=== PATIENT | male | born 1945 | race Caucasian/White ===

== ENCOUNTER 2019-08-07 11:02 | Outpatient (CLI) | payer MEDICARE, OTHER, SELFPAY ==
--- NOTE | 2019-08-07 11:22 | XR_ITS ---
WS: [id number] Left hip, AP and frog leg views, 08/07/2019 Clinical Data: LEFT HIP PAIN Comparison: None. Findings: A left hip arthroplasty is in good position. The acetabular portion is attached to the pelvis with an orthopedic screw. The femoral portion of the prosthesis is within the proximal femoral medullary can al. No loosening is seen. The soft tissues are not remarkable. XR/XR hip LT 2-3V wo/w pel* [id number] Impression: Left hip arthroplasty.
== END 2019-08-07 11:03 | disposition home or self-care (01) ==
LOC: RAD 11:19
PROVIDERS: Family Provider Emergency Medicine Emergency Medical Services; PCP Emergency Medicine Emergency Medical Services; Visit Provider Orthopaedic Surgery
DX: M25.552 Pain in left hip (principal); Z96.642 Presence of left artificial hip joint
CPT/HCPCS: 73502

== ENCOUNTER 2020-07-09 07:39 | Outpatient (CLI) | payer MEDICARE, OTHER, SELFPAY ==
--- NOTE | 2020-07-09 08:00 | USCV_ITS ---
Sridhar Mercado Age: 74 Gender: M : 1945 Exam Date: 07/09/2020 08:03 Ordering Phys: Brenda Ortiz MD ([email or web address]) Technologist: Andreea Castro Exam Location: [facility] [place] Indication: STENOSIS Risk Factors: Previous Vascular Surgery: Right Brachial BP: / Left Brachial BP: / Right Left Velocity (cm/s) Spectral Plaque Velocity (cm/s) Spectral Plaque Syst/Diast Broadening Syst/Diast Broadening 66.20/ 22.10 Prox CCA 72.70 / 17.50 89.30/ 20.90 Mid CCA 64.50 / 15.00 93.70/ 18.70 Distal CCA 66.40 / 11.30 124.30/21.80 Prox ICA 82.50 / 20.60 32.90/ 8.50 Mid ICA 76.60 / 19.20 46.00/ 13.80 Distal ICA 69.30 / 23.60 232.40 ECA 122.30 1.39 ICA/CCA 1.28 Antegrade Vertebral Antegrade 34.20/ 7.20 cm/s 40.50/ 9.60 cm/s Tri Subclavian Tri 75.20 138.6 0 FINDINGS Moderate diffuse heterogeneous plaques at the bifurcation and distal common carotid artery on the right side. Mild to moderate heterogeneous plaques of the left bifurcation and internal carotid artery. Antegrade flow in the vertebral arteries bilaterally. Elevated Doppler velocity in the right external carotid artery CONCLUSIONS Moderate diffuse heterogeneous plaques at the bifurcation and distal common carotid artery on the right sidewith velocity elevation consistent with 16-49% stenosis. Moderate heterogeneous plaques at the left bifurcation and internal carotid arterywith velocity elevation consistent with 16-49% stenosis. Elevated velocity in the external carotid artery on the right side, suggestive of hemodynamically significant stenosis. Compared to the study from 07/13/2019, there may not be a significant change Dr Brenda Ortiz MD [facility] (Electronically Signed) Final Date: 10 July 2020 14:47 S
== END 2020-07-09 07:40 | disposition home or self-care (01) ==
PROVIDERS: PCP Emergency Medicine Emergency Medical Services; Visit Provider Internal Medicine Cardiovascular Disease
DX: I65.23 Occlusion and stenosis of bilateral carotid arteries (principal)
CPT/HCPCS: 93880

== ENCOUNTER → 2022-02-16 13:28 | Outpatient (BNVA) | payer OTHER, SELFPAY | PROVIDERS: PCP Emergency Medicine Emergency Medical Services; Visit Provider Internal Medicine Cardiovascular Disease | DX: I25.10 Atherosclerotic heart disease of native coronary artery without angina pectoris (principal); I49.9 Cardiac arrhythmia, unspecified; I65.23 Occlusion and stenosis of bilateral carotid arteries; I10 Essential (primary) hypertension; E78.2 Mixed hyperlipidemia | CPT/HCPCS: 99214 ==

== ENCOUNTER 2022-04-05 12:56 | Outpatient (CLI) | payer OTHER, SELFPAY ==
--- NOTE | 2022-04-05 13:30 | USCV_ITS ---
Sridhar Mercado Age: 76 Gender: M : 1945 Exam Date: 04/05/2022 13:37 Ordering Phys: Brenda Ortiz MD ([email or web address]) Technologist: Lalitha Sanchez [place] [facility] [place]: carotid stenosis Risk Factors: Unknown Previous Vascular Surgery: None Right Brachial BP: / Left Brachial BP: / Right Left Velocity (cm/s) Spectral Plaque Velocity (cm/s) Spectral Plaque Syst/Diast Broadening Syst/Diast Broadening 42.70/ 7.20 Prox CCA 87.20 / 14.50 60.50/ 13.80 [place] Mid CCA 91.40 / 17.90 51.90/ 10.50 [place] Distal CCA 85.40 / 19.70 [place] 107.15/20.40 [place] Prox ICA 140.30/ 10.60 [place] 77.80/ 12.00 Mid ICA 66.40 / 14.10 55.50/ 13.70 Distal ICA 63.90 / 21.60 155.40 [place] ECA 203.10 [place] 2.04 ICA/CCA 1.53 Antegrade Vertebral Antegrade 31.60/ 7.20 cm/s 45.90/ 12.80 cm/s Tri Subclavian Tri 88.90 85.40 FINDINGS Comparison:. 07/09/20 Diffuse bilateral scattered calcified plaque and intimal thickening throughout the common carotid arteries and extending through the bifurcation. Mild diffuse elevation of carotid velocity. Antegrade vertebral arteries. CONCLUSIONS Bilateral ICA stenosis less than 50%, right greater than left. No interval change in stenosis since prior exam. Extensive diffuse irregular carotid atherosclerosis. Dr. Lianet Hogan DO (Electronically Signed) Final Date: 05 April 2022 14:52 S
== END 2022-04-05 12:57 | disposition home or self-care (01) ==
LOC: RAD 12:58
PROVIDERS: PCP Emergency Medicine Emergency Medical Services; Visit Provider Internal Medicine Cardiovascular Disease
DX: I65.23 Occlusion and stenosis of bilateral carotid arteries (principal); I77.9 Disorder of arteries and arterioles, unspecified
CPT/HCPCS: 93880

== ENCOUNTER → 2023-02-14 13:48 | Outpatient (BNVA) | payer OTHER, SELFPAY | PROVIDERS: PCP Emergency Medicine Emergency Medical Services; Visit Provider Internal Medicine Cardiovascular Disease | DX: I65.23 Occlusion and stenosis of bilateral carotid arteries (principal); I25.10 Atherosclerotic heart disease of native coronary artery without angina pectoris; I10 Essential (primary) hypertension; E78.2 Mixed hyperlipidemia; I49.8 Other specified cardiac arrhythmias | CPT/HCPCS: 99214 ==

== ENCOUNTER 2023-06-13 10:50 | Outpatient (CLI) | payer OTHER, SELFPAY ==
--- NOTE | 2023-06-13 11:15 | USCV_ITS ---
Sridhar Mercado Age: 77 Gender: M : 1945 Exam Date: 06/13/2023 11:00 Ordering Phys: Brenda Ortiz MD ([email or web address]) Technologist: Exam Location: [facility] [place] Indication: cca disease Risk Factors: Previous Vascular Surgery: Right Brachial BP: / Left Brachial BP: / Right Left Velocity (cm/s) Spectral Plaque Velocity (cm/s) Spectral Plaque Syst/Diast Broadening Syst/Diast Broadening 77.70/ 17.10 [place] Prox CCA 82.85 / 14.95 153.80/22.30 [place] Mid CCA 60.65 / 14.55 [place] 122.30/28.90 [place] Distal CCA 78.60 / 14.50 [place] 107.00/19.25 [place] Prox ICA 87.10 / 12.10 [place] 89.75/ 13.25 Mid ICA 87.10 / 14.30 55.80/ 13.97 Distal ICA 39.50 / 8.50 132.80 ECA 189.00 0.53 ICA/CCA 1.15 Antegrade Vertebral Antegrade 49.95/ 11.55 cm/s 50.90/ 13.20 cm/s Tri Subclavian Tri 81.20 83.10 FINDINGS Moderate diffuse common carotid arteryd heterogenous diffuse plaques in the right common carotid artery Mild to moderate diffuse plaques in the left common carotid artery. Mild to moderate plaques at the bifurcations bilaterally Elevated velocity in the left ECA Antegrade flow in the vertebral arteries bilateral Normal Doppler flow velocities in the common good subclavian arteries bilaterally CONCLUSIONS Mild to moderate plaques at the bifurcations bilaterally, suggesting less than 50% stenosis Elevated velocity in the mid right common carotid artery on the right side, may suggest hemodynamically significant stenosis Elevated velocity in the left ECA, may suggest hemodynamically significant stenosis Dr Brenda Ortiz MD [facility] (Electronically Signed) Final Date: 13 June 2023 17:56 S
== END 2023-06-13 10:51 | disposition home or self-care (01) ==
LOC: RAD 10:50
PROVIDERS: PCP Emergency Medicine Emergency Medical Services; Visit Provider Internal Medicine Cardiovascular Disease
DX: I65.23 Occlusion and stenosis of bilateral carotid arteries (principal)
CPT/HCPCS: 93880; 99214

== ENCOUNTER → 2023-10-27 10:55 | Outpatient (BNVA) | payer OTHER, SELFPAY | PROVIDERS: PCP Emergency Medicine Emergency Medical Services; Visit Provider Internal Medicine Cardiovascular Disease | DX: R07.9 Chest pain, unspecified (principal); R06.02 Shortness of breath; I25.10 Atherosclerotic heart disease of native coronary artery without angina pectoris; I49.9 Cardiac arrhythmia, unspecified; I10 Essential (primary) hypertension; E78.2 Mixed hyperlipidemia; I65.23 Occlusion and stenosis of bilateral carotid arteries | CPT/HCPCS: 93005; 99214 ==

== ENCOUNTER → 2023-11-01 09:39 | Outpatient (BNVA) | payer OTHER, SELFPAY | PROVIDERS: PCP Emergency Medicine Emergency Medical Services; Visit Provider Internal Medicine Cardiovascular Disease | DX: I48.91 Unspecified atrial fibrillation (principal); I49.9 Cardiac arrhythmia, unspecified; I47.29 Other ventricular tachycardia; I49.3 Ventricular premature depolarization | CPT/HCPCS: 93246 ==

== ENCOUNTER → 2023-12-14 10:32 | Outpatient (BNVA) | payer OTHER, SELFPAY | PROVIDERS: PCP Emergency Medicine Emergency Medical Services; Visit Provider Nurse Practitioner Family | DX: I48.19 Other persistent atrial fibrillation (principal) | CPT/HCPCS: 99214 ==

== ENCOUNTER 2023-12-16 12:23 | Outpatient (CLI) | payer OTHER, SELFPAY ==
[2023-12-16 13:16] LABS: Basophils # 0.1 10^3/uL (0.0-0.1); Basophils % 0.8 %; Eosinophils % 0.2 %; Hematocrit 40.8 % (37-53); Lymphocytes # 1.9 10^3/uL (0.8-4.8); Lymphocytes % 22.5 %; Mean Corpuscular HGB Conc 34.6 g/dL (30-55); Mean Corpuscular Hemoglobin 33.9 pg (27-33); Mean Corpuscular Volume 98.1 fl (82-101); Mean Platelet Volume 9.2 fL (7.4-10.4); Monocytes # 0.7 10^3/uL (0.2-0.9); Neutrophils # 5.75 10^3/uL (1.8-7.7); Neutrophils % 67.8 %; Nucleated Red Blood Cells % 0 %; Platelet Count 173 10^3/cmm (157-399); Red Blood Count 4.16 10^6/uL (3.85-5.65); Red Cell Distribution Width 13.2 % (12.1-15.1); White Blood Count 8.49 10^3/uL (3.29-11.43)
== END 2023-12-16 12:24 | disposition home or self-care (01) ==
LOC: LAB 12:26
PROVIDERS: Nurse Practitioner Family; PCP Emergency Medicine Emergency Medical Services; Visit Provider Internal Medicine Cardiovascular Disease
DX: I48.91 Unspecified atrial fibrillation (principal)
CPT/HCPCS: 85025

== ENCOUNTER 2023-12-16 12:35 | Outpatient (CLI) | payer OTHER, SELFPAY ==
--- NOTE | 2023-12-16 14:00 | USCV_ITS ---
MercadoSridhar carlos Age: 78 Gender: M : 1945 Exam Date: 12/16/2023 14:15 Ordering Phys: Brenda Ortiz MD ([email or web address]) Technologist: DEREK [place] [facility] [place]: a fib BP: 138 / 70 HR: 72 Rhythm: Sinus Technical Quality: Adequate MEASUREMENTS (Male / Female) Normal Values 2D ECHO LV Diastolic Diameter PLAX 4.1 cm 4.2 - 5.9 / 3.9 - 5.3 cm IVS Diastolic Thickness 1.2 cm 0.6 - 1.0 / 0.6 - 0.9 cm IVS Systolic Thickness 1.8 cm LVPW Diastolic Thickness 1.7 cm 0.6 - 1.0 / 0.6 - 0.9 cm LVPW Systolic Thickness 1.3 cm LVOT Diameter 2.1 cm LV Ejection Fraction 2D Teich 60.8 % LV Ejection Fraction MOD 2C 56.6 % LV Ejection Fraction 2C AL 55.5 % LA Diameter 4.4 cm RA Systolic Volume 4C AL 76.9 ml RA Systolic Volume 4C MOD 76.2 ml LA Sys Volume AL 80.0 cm cubed LA Sys Volume Index AL 34.4 cm cubed/m squared Aorta at Sinotubular Diameter 2.7 cm IVC Diameter 2.7 cm M-MODE LA Ao Ratio MM 1.3 MV E Point Septal Separation 0.7 cm AV Cusp Separation MM 1.7 cm DOPPLER AV Peak Velocity 87.0 cm/s LVOT Peak Velocity 62.0 cm/s AV Area Cont Eq vti 3.1 cm squared AV Area Cont Eq pk 2.5 cm squared MV Peak Velocity 97.0 cm/s MV Area PHT 8.5 cm squared Mitral E to A Ratio 1.5 TV Peak Velocity 257.5 cm/s TR Peak Velocity 273.0 cm/s TR Peak Gradient 29.8 mmHg TR Mean Velocity 183.0 cm/s TR Mean Gradient 15.9 mmHg TR Velocity Time Integral 70.3 cm PV Peak Velocity 66.7 cm/s RV Ejection Time 0.3 s FINDINGS Left Ventricle Normal left ventricular size and systolic function, EF 55%. Mild concentric left ventricular hypertrophy. No regional wall motion abnormalities. Right Ventricle The right ventricle is normal in size and function. Right Atrium Mildly increased right atrial size. Left Atrium Mildly increased left atrial size. Mitral Valve Mild mitral valve regurgitation. Aortic Valve No gross abnormalities noted Tricuspid Valve No gross abnormalities noted Pulmonic Valve No gross abnormalities noted Pericardium Normal pericardium without effusion. Aorta Normal ascending aorta dimension. IVC The inferior vena cava appears normal. CONCLUSIONS Normal left ventricular size and systolic function, EF 55%. Mild concentric left ventricular hypertrophy. No regional wall motion abnormalities. Mild biatrial enlargement. Mild mitral valve regurgitation. There is no pericardial effusion. There are no intracardiac masses. Estimated pulmonary artery peak systolic pressure within normal limit Compared to the study from 04/05/2019, there biatrial enlargement appear to be new Dr Brenda Ortiz MD [facility] (Electronically Signed) Final Date: 19 Dec 2023 12:43 S
== END 2023-12-16 12:36 | disposition home or self-care (01) ==
LOC: RAD 12:35
PROVIDERS: PCP Emergency Medicine Emergency Medical Services; Visit Provider Internal Medicine Cardiovascular Disease
DX: I48.91 Unspecified atrial fibrillation (principal); I51.7 Cardiomegaly; I34.0 Nonrheumatic mitral (valve) insufficiency
CPT/HCPCS: 93306

== ENCOUNTER 2024-01-12 10:48 | Outpatient (CLI) | payer OTHER, SELFPAY ==
[2024-01-12 11:50] LABS: Anion Gap 15.3 (5-19); Blood Urea Nitrogen 13 mg/dL (8-23); Calcium 9.4 mg/dL (8.5-10.5); Carbon Dioxide 27 mmol/L (22-29); Chloride 88 mmol/L (98-107); Glucose 135 mg/dL (65-115); NT Pro B Type Natriuretic Pept 2824 pg/mL (0-450); Osmolality Calculated 264 mOsm/kg (285-295); Potassium 4.3 mmol/L (3.5-5.1); Sodium 126 mmol/L (136-145)
== END 2024-01-12 10:49 | disposition home or self-care (01) ==
LOC: LAB 10:49
PROVIDERS: PCP Emergency Medicine Emergency Medical Services; Visit Provider Internal Medicine Cardiovascular Disease
DX: R06.02 Shortness of breath (principal)
CPT/HCPCS: 36415; 80048; 83880

== ENCOUNTER 2024-02-11 10:06 | Inpatient (IN) | payer OTHER, MEDICARE, SELFPAY ==
[2024-02-11] VITALS (80 sets, daily range): BP systolic 79–144; BP diastolic 45–84; PULSE 71–108; RESP 18–39; TEMP 36.7–36.8; O2SAT 78–100; BMI 38.0
--- NOTE | 2024-02-11 10:09 | XRR_ITS ---
PROCEDURE INFORMATION: Exam: XR Chest Exam date and time: 02/11/2024 11:15 AM Age: 78 years old Clinical indication: Cough and dyspnea; Additional info: Dyspnea/cough TECHNIQUE: Imaging protocol: Radiologic exam of the chest. Views: 1 view. COMPARISON: No relevant prior studies available. FINDINGS: Lungs: There is mild ill-defined ground-glass and reticular opacity in the lower lungs bilaterally. Pleural spaces: The left lateral costophrenic sulcus is blunted. No pneumothorax. Heart/Mediastinum: There is moderate enlargement of the cardiac silhouette. Bones/joints: Bones are unremarkable. XR/XR chest 1V portable [id number] IMPRESSION: Mild bilateral lower lung opacity and cardiac enlargement. Probable interstitial edema. Atypical infection or interstitial lung disease not excluded.
--- NOTE | 2024-02-11 10:09 | ECG_ITS ---
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 Measurements Intervals [place] Rate: 98 P: 0 WI: 0 QRS: 19 QRSD: 126 T: 4 QT: 351 QTc: 448 Interpretive Statements ATRIAL FIBRILLATION WITH ABERRANT CONDUCTION OR VENTRICULAR PREMATURE COMPLEXES RIGHT BUNDLE BRANCH BLOCK [120+ ms QRS DURATION, UPRIGHT V1, 40+ ms S IN I/aVL/V4/V5/V6] Compared to ECG 10/27/2023 11:02:41 Aberrant conduction of supraventricular beat(s) now present Right bundle-branch block now present Incomplete right bundle-branch block no longer present Myocardial infarct finding no longer present Electronically Signed On 02-12-2024 7:08:00 CDT by Grant Lewis M.D. [id number]
[2024-02-11 10:20] LABS: Eosinophils % 0.1 %; Lymphocytes # 0.9 10^3/uL (0.8-4.8); Lymphocytes % 3.4 %; Mean Corpuscular HGB Conc 33.9 g/dL (30-55); Mean Corpuscular Hemoglobin 33.3 pg (27-33); Mean Corpuscular Volume 98.2 fl (82-101); Monocytes # 0.5 10^3/uL (0.2-0.9); Monocytes % 1.8 %; Neutrophils # 25.54 10^3/uL (1.8-7.7); Neutrophils % 93.2 %; Nucleated Red Blood Cells % 0 %; Platelet Count 163 10^3/cmm (157-399); Red Blood Count 3.87 10^6/uL (3.85-5.65); Red Cell Distribution Width 14.6 % (12.1-15.1); White Blood Count 27.41 10^3/uL (3.29-11.43)
--- NOTE | 2024-02-11 10:34 | CTR_ITS ---
PROCEDURE INFORMATION: Exam: CT Abdomen And Pelvis With Contrast Exam date and time: 02/11/2024 12:16 PM Age: 78 years old Clinical indication: Abdominal pain; Generalized; Prior surgery; Surgery date: 6+ months; Surgery type: Gb, appy, back hip; Additional info: Abd pain TECHNIQUE: Imaging protocol: Computed tomography of the abdomen and pelvis with contrast. Radiation optimization: All CT scans at this facility use at least one of these dose optimization techniques: automated exposure control; mA and/or kV adjustment per patient size (includes targeted exams where dose is matched to clinical indication); or iterative reconstruction. Contrast material: OMNI 350; Contrast volume: 100 ml; Contrast route: INTRAVENOUS (IV); COMPARISON: CR XR hip LT 2-3V wo/w pel* [id number] 08/07/2019 11:32 AM RADIATION DOSE METRICS: Total DLP (mGy-cm): 1253.48 FINDINGS: Lungs: There is coarse reticular opacity in the lung bases. There is dependent subsegmental atelectasis in the lung bases. Heart: There is moderate cardiac enlargement. Liver: The liver is normal. Gallbladder and biliary ducts: The gallbladder is absent. There is no intrahepatic or extrahepatic bile duct dilation. Pancreas: There is mild atrophy of the pancreas. Spleen: The spleen is unremarkable. Adrenal glands: The adrenal glands are unremarkable. Kidneys and ureters: There is a 5.6 cm simple right renal cyst. Renal parenchymal enhancement pattern is otherwise normal. There is no hydronephrosis or stones on the right. The left kidney and ureter are unremarkable. Stomach and bowel: The stomach is nondistended, limiting assessment of wall thickness. The small bowel is nondilated. There is moderate distal descending and sigmoid colonic diverticulosis without evidence of diverticulitis. Appendix: The appendix is not visible. Intraperitoneal space: There is no free air or significant intraperitoneal free fluid. Vasculature: There is moderate aortic atherosclerotic disease. The portal, splenic and superior mesenteric veins are patent. Lymph nodes: There is no lymphadenopathy in the retroperitoneum, mesentery, pelvis or inguinal regions. Urinary bladder: The urinary bladder is decompressed, preventing meaningful evaluation of wall thickness. The Roy catheter is appropriately positioned with the bulb and tip within the bladder lumen. Reproductive: The prostate and seminal vesicles are unremarkable. Bones/joints: There is moderate degenerative disease in the lumbar spine. The left hip prosthesis is intact and well aligned. The bony pelvis is intact. There is mild nonspecific presacral edema. Soft tissues: There is a small fat containing right inguinal hernia. There is subcutaneous edema in both flanks. There is asymmetric atrophy of the left gluteal musculature. CT/CT abdomen pelvis w con* [id number] IMPRESSION: 1. No acute intra-abdominal findings. 2. Coarse reticular opacity in the lung bases. Nonspecific finding. Possible interstitial edema or chronic interstitial lung disease. 3. Incidental findings above. COMMENTS: Consistent with the [employer]'s Incidental Findings Committee white paper (J Am Dennis Radiol 2018): Any incidental renal lesion less than 1 cm or classified as too small to characterize, or any incidental cystic renal lesion characterized as simple-appearing, is likely benign. No follow-up imaging is recommended for these lesions per consensus recommendations based on imaging criteria.
[2024-02-11 10:40] LABS: Lactic Sepsis W/Reflex 2.6 mmol/L (0.5-2.2)
--- NOTE | 2024-02-11 10:44 | ED_ITS ---
HPI - General Adult 2 General: Chief complaint: General Medical Stated complaint: WEAKNESS; FALL Time Seen by Provider: 02/11/24 10:08 History of Present Illness: 78-year-old male presents emergency room from home. He fell about 2 to 3 days ago he told the nurse 3 days ago when I talked him he made it sound like it was more 2 days ago in either event he did not seek out any evaluation after that fall he is been laying in bed the last couple of days. EMS reported he was lying in feces and urine. He has not been able to get up he is complaining of some shortness of breath some abdominal discomfort. He denies chest pain. No vomiting or diarrhea. Patient has a history of atrial fibrillation he is typically on apixaban and has not had any of his medicines the last couple of days. He also has a history of coronary artery disease and hypertension he is not diabetic. Patient is hypotensive on arrival. Associated symptoms: Reports malaise, nausea and palpitations; Deny chest pain, dyspnea, rash or vomiting Review of Systems 2 Const: Reports: chills, body aches, fatigue and malaise; Denies: fever(s) Card: Reports: palpitations, edema and swelling of feet/ankles; Denies: chest pain or irregular heart rhythm Resp: Denies: dyspnea GI: Reports: nausea; Denies: abdominal pain or vomiting : Denies: dysuria, urinary frequency or urinary urgency Musc: Denies: neck pain or back pain Skin/Breast: Denies: rash PFSH ED 2 PFSH: Medical History Atrial fibrillation Carotid stenosis Gout CAD (coronary artery disease) Pt had PCI in December of 2010 three stents Hyperlipidemia Hypertension Ventricular arrhythmia Surgical History H/O left wrist surgery History of mandibular surgery History of appendectomy S/P cholecystectomy Previous back surgery History of total hip replacement Family History Father CAD (coronary artery disease) Mother CAD (coronary artery disease) Diabetes Brother CAD (coronary artery disease) Diabetes Sister CAD (coronary artery disease) Cancer Diabetes Other Hypertension Denies family history of Clotting disorder Dementia Chronic kidney disease (CKD) Suicide Anesthesia complication Bleeding disorder Lung disease Stroke Social History Smoking and tobacco/nicotine status: former use of tobacco/nicotine Alcohol intake: never Substance/Drug Use: never Physical Exam 2 Const: GENERAL APPEARANCE: cooperative ORIENTATION/CONSCIOUSNESS: Yes awake HENMT: COMMON NORMALS: normocephalic and atraumatic HEAD & SCALP: n ormocephalic and atraumatic Resp: COMMON NORMALS: normal respiratory effort, No retractions, No use of accessory muscles and clear to auscultation bilaterally AUSCULTATION: clear to auscultation bilaterally Cardio: COMMON NORMALS: regular rate, regular rhythm and No murmurs present (Cardio) RATE: regular rate RHYTHM: regular rhythm GI: COMMON NORMALS: No hepatosplenomegaly present AUSCULTATION: Yes normoactive bowel sounds PALPATION: Yes Tenderness to palpation present (GI) (Diffuse), No Guarding due to palpation present (GI) and Yes No hepatosplenomegaly present Extremity: OTHER: Lower extremity swollen edematous reddened and inflamed 2+ edema Skin: COMMON NORMALS: no rashes or lesions noted GENERAL SKIN EXAM: no rashes or lesions noted Course 2 Vital Signs: Vital signs: Vital Signs Temperature 98.3 F 02/11/24 10:07 Pulse Rate 84 02/11/24 13:30 Respiratory Rate 28 H 02/11/24 13:30 Blood Pressure 120/55 02/11/24 13:30 Pulse Oximetry 94 02/11/24 13:30 Oxygen Delivery Me thod Nasal Cannula 02/11/24 11:15 Oxygen Flow Rate 2 02/11/24 11:15 [facility] - General Adult Medical Decision Making tip him into congestive heart failure. At this point clinically it is better to give the smaller bolus and then reevaluate if he requires or can tolerate more fluids. Blood pressure improved his MAP is now 70. Given the amount of edema is high we will hold off on any further fluid has been started on Vanco and Zosyn for cellulitis possible pneumonia on his chest x-ray. He does have significant leukocytosis mild elevation of his lactic acid. He also has slight anion gap and elevation of his creatinine. Discussed with hospitalist orders written Lab Data 02/11/24 10:14 02/11/24 10:45 Radiology Impressions Chest X-Ray 02/11/24 10:09 IMPRESSION: Mild bilateral lower lung opacity and cardiac enlargement. Probable interstitial edema. Atypical infection or interstitial lung disease not excluded. Abdomen/Pelvis CT 02/11/24 10:34 IMPRESSION: 1. No acute intra-abdominal findings. 2. Coarse reticular opacity in the lung bases. Nonspecific finding. Possible interstitial edema or chronic interstitial lung disease. 3. Incidental findings above. COMMENTS: Consistent with the [employer]'s Incidental Findings Committee white paper (J Am Dennis Radiol 2018): Any incidental renal lesion less than 1 cm or classified as too small to characterize, or any incidental cystic renal lesion characterized as simple-appearing, is likely benign. No follow-up imaging is recommended for these lesions per consensus recommendations based on imaging criteria. Laboratory Results WBC 27.41 10^3/uL (3.29-11.43) H 02/11/24 10:14 RBC 3.87 10^6/uL (3.85-5.65) 02/11/24 10:14 Hgb 12.90 g/dL (11.27-16.99) 02/11/24 10:14 Hct 38.0 % (37-53) 02/11/24 10:14 MCV 98.2 fl (82-101) 02/11/24 10:14 MCH 33.3 pg (27-33) H 02/11/24 10:14 MCHC 33.9 g/dL (30-55) 02/11/24 10:14 RDW 14.6 % (12.1-15.1) 02/11/24 10:14 Plt Count 163 10^3/cmm (157-399) 02/11/24 10:14 MPV 9.0 fL (7.4-10.4) 02/11/24 10:14 Neut % (Auto) 93.2 % 02/11/24 10:14 Lymph % (Auto) 3.4 % 02/11/24 10:14 [place] % (Auto) 1.8 % 02/11/24 10:14 Eos % (Auto) 0.1 % 02/11/24 10:14 Baso % (Auto) 0.0 % 02/11/24 10:14 Neut # (Auto) 25.54 10^3/uL (1.8-7.7) H 02/11/24 10:14 Lymph # (Auto) 0.9 10^3/uL (0.8-4.8) 02/11/24 10:14 [place] # (Auto) 0.5 10^3/uL (0.2-0.9) 02/11/24 10:14 Eos # (Auto) 0.0 10^3/uL (0.0-0.8) 02/11/24 10:14 Baso # (Auto) 0.0 10^3/uL (0.0-0.1) 02/11/24 10:14 Nucleated RBC % (auto) 0 % 02/11/24 10:14 Nucleated RBCs # 0.0 /100WBC 02/11/24 10:14 Specimen Type Arterial 02/11/24 13:29 Sample Site Radial, right 02/11/24 13:29 ABG pH 7.36 (7.35-7.45) 02/11/24 13:29 ABG pCO2 36.2 mmHg (35-45) 02/11/24 13:29 ABG pO2 81.4 mmHg (80.0-100.0) 02/11/24 13:29 ABG HCO3 20.6 mmol/L (22-26) L 02/11/24 13:29 ABG O2 Saturation 96.1 02/11/24 13:29 ABG Base Excess -4.2 mmol/L (-2.0-2.0) L 02/11/24 13:29 Jesus Test Pos 02/11/24 13:29 A-a O2 Gradient 3.0 mmHg (5-10) L 02/11/24 13:29 Hematocrit 38.0 % (42-52) L 02/11/24 13:29 Hgb O2 Saturation 94.6 % (95-100) L 02/11/24 13:29 Carboxyhemoglobin 1.4 %THgb (0.4-20.1) 02/11/24 13:29 Methemoglobin 0.1 % (0.4-1.5) L 02/11/24 13:29 Total Hemoglobin 12.4 g/dL (14-18) L 02/11/24 13:29 Sodium 127.0 mmol/L (131-143) L 02/11/24 13:29 Potassium 3.9 mmol/L (3.5-5.0) 02/11/24 13:29 Glucose 79.0 mg/dL (70-115) 02/11/24 13:29 Ionized Calcium 1.2 mmol/L (1.1-1.4) 02/11/24 13:29 O2 Delivery Device Nc 02/11/24 13:29 O2 Liters/Min 3.0 % 02/11/24 13:29 Flight Information Expediter ID Tasha 02/11/24 13:29 Sodium 128 mmol/L (136-145) L 02/11/24 10:45 Potassium 4.2 mmol/L (3.5-5.1) 02/11/24 10:45 Chloride 93 mmol/L (98-107) L 02/11/24 10:45 Carbon Dioxide 20 mmol/L (22-29) L 02/11/24 10:45 Anion Gap 22.2 (5-19) H 02/11/24 10:45 BUN 63 mg/dL (8-23) H 02/11/24 10:45 Creatinine 1.3 mg/dL (0.7-1.2) H 02/11/24 10:45 GFR Calculation Not Reportable 02/11/24 10:45 Glucose 72 mg/dL (65-115) 02/11/24 10:45 Calculated Osmolality 285 mOsm/kg (285-295) 02/11/24 10:45 Lactic Acid 2.6 mmol/L (0.5-2.2) H 02/11/24 10:14 Lactic Acid (Sepsis) 2.9 mmol/L (0.5-2.2) H 02/11/24 12:45 Calcium 9.4 mg/dL (8.5-10.5) 02/11/24 10:45 Magnesium 2.3 mg/dL (1.7-2.3) 02/11/24 10:45 Total Bilirubin 3.0 mg/dL (0.15-1.2) H 02/11/24 10:45 AST 169 U/L (0-40) H 02/11/24 10:45 ALT 69 U/L (0-41) H 02/11/24 10:45 Alkaline Phosphatase 128 U/L (40-130) 02/11/24 10:45 Creatine Kinase 355 U/L (39-308) H* 02/11/24 10:45 Troponin T Baseline 87 ng/L (0-15) H 02/11/24 10:45 Troponin T 120 Minute 75.92 ng/L (0-15) H 02/11/24 12:45 Delta Troponin T -11.08 ABS# (0-10) L 02/11/24 12:45 Total Protein 6.3 g/dL (6.6-8.7) L 02/11/24 10:45 Albumin 2.7 g/dL (3.5-5.2) L 02/11/24 10:45 Globulin 3.6 g/dL (1.3-4.6) 02/11/24 10:45 Lipase 26 U/L (13-60) 02/11/24 12:45 Urine Color Dark yellow (Yellow) A 02/11/24 10:35 Urine Appearance Cloudy (CLEAR) A 02/11/24 10:35 Urine pH 5 (5-7) 02/11/24 10:35 Ur Specific [place] 1.015 (1.005-1.030) 02/11/24 10:35 Urine Protein Trace (Negative) 02/11/24 10:35 Urine Glucose (UA) Norm (Normal) 02/11/24 10:35 Urine Ketones Negative (Negative) 02/11/24 10:35 Urine Blood 2+ (Negative) H 02/11/24 10:35 Urine Nitrate Negative (Negative) 02/11/24 10:35 Urine Bilirubin 1+ (Negative) H 02/11/24 10:35 Urine Urobilinogen 4 mg/dL (Negative) H 02/11/24 10:35 Ur Leukocyte Esterase Negative (Negative) 02/11/24 10:35 Urine RBC 5-10 /hpf (0-2) H 02/11/24 10:35 Urine WBC 5-10 /hpf (0-5) H 02/11/24 10:35 Ur Squamous Epith Cells None /hpf (0-5) 02/11/24 10:35 Amorphous Sediment 3+ /hpf 02/11/24 10:35 Urine Bacteria 1+ /hpf (NONE) H 02/11/24 10:35 Coarse Granular Casts 5-10 /lpf H 02/11/24 10:35 All radiology interpretation(s) finalized by discharge Discharge Plan Discharge Patient Disposition: Admitted As Inpatient Admit Provider: Brian Israel Clinical Impression: Sepsis, Cellulitis, Pneumonia, Rhabdomyolysis Atrial fibrillation Qualifiers: Atrial fibrillation type: persistent (not longstanding) Qualified Code(s): I 48.19 - Other persistent atrial fibrillation Condition: Stable Coding Level of Care Code ED Public Safety Director for Mariluz Clifton
--- NOTE | 2024-02-11 11:07 | PC.NURSE ---
PT FAMILY AT BEDSIDE. THIS NURSE ASKED THE FAMILY HOW LONG THE PT HAD BEEN LAYING IN BED. PT FAMILY STATES 3 DAYS. THIS NURSE QUESTIONED ABOUT THE PT BEING FOUND BY EMS LAYING IN URINE AND FECES. PT STATES HE WOULDN'T LET ME CALL AN AMBULANCE. HE KEPT SAYING HE WAS GOING TO GET UP AND NEVER DID. NOTIFIED.
[2024-02-11 11:12] LABS: Add Urine Microscopic? YES; Bacteria Urine 1+ /hpf; Bilirubin Urine 1+ (Negative); Blood Urine 2+ (Negative); Glucose Urine UA Norm (Normal); Ketones Urine Negative (Negative); Leukocyte Esterase Urine Negative (Negative); Nitrate Urine Negative (Negative); Protein Urine Trace (Negative); Specific Gravity, Urine 1.015 (1.005-1.030); Urine Appearance Cloudy (CLEAR); Urine Color Dark Yellow (Yellow); Urobilinogen Urine 4 mg/dL (Negative); pH Urine 5 (5-7)
[2024-02-11 11:12] LABS: Albumin Level 2.7 g/dL (3.5-5.2); Alkaline Phosphatase 128 U/L (40-130); Blood Urea Nitrogen 63 mg/dL (8-23); Calcium 9.4 mg/dL (8.5-10.5); Carbon Dioxide 20 mmol/L (22-29); Globulin 3.6 g/dL (1.3-4.6); Glucose 72 mg/dL (65-115); Magnesium 2.3 mg/dL (1.7-2.3); Osmolality Calculated 285 mOsm/kg (285-295); Total Protein 6.3 g/dL (6.6-8.7)
[2024-02-11 11:13] LABS: Troponin(5th) Baseline 87 ng/L (0-15)
[2024-02-11 11:13] LABS: Add Urine Culture? No; Amorphous Sediment Urine 3+ /hpf
[2024-02-11 11:34] LABS: Alanine Aminotransferase 69 U/L (0-41); Aspartate Amino Transferase 169 U/L (0-40); Chloride 93 mmol/L (98-107); Potassium 4.2 mmol/L (3.5-5.1); Sodium 128 mmol/L (136-145)
[2024-02-11 11:36] LABS: Creatine Phosphokinase 355 U/L (39-308)
[2024-02-11 11:37] LABS: Anion Gap 22.2 (5-19)
[2024-02-11 12:04] LABS: Reflex Lactate Order REFLEX LACTIC ORDERD
[2024-02-11] MEDS: iohexol 350 mg/mL 500 mL Btl (per mL) IV (12:18)
--- NOTE | 2024-02-11 12:30 | ECG_ITS ---
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 Measurements Intervals [place] Rate: 90 P: 0 RI: 0 QRS: 46 QRSD: 134 T: -2 QT: 370 QTc: 454 Interpretive Statements ATRIAL FIBRILLATION with PVCs INDETERMINATE AXIS RIGHT BUNDLE BRANCH BLOCK [120+ ms QRS DURATION, UPRIGHT V1, 40+ ms S IN I/aVL/V4/V5/V6] Compared to ECG 02/11/2024 10:21:24 Indeterminate axis now present Aberrant conduction of supraventricular beat(s) no longer present Electronically Signed On 02-12-2024 7:12:40 CDT by Grant Lewis M.D. [id number]
[2024-02-11 13:14] LABS: Lactic Acid level (Lactate) 2.9 mmol/L (0.5-2.2)
[2024-02-11 13:15] LABS: Troponin 5 2HR 75.92 ng/L (0-15)
--- NOTE | 2024-02-11 13:15 | CTR_ITS ---
PROCEDURE INFORMATION: Exam: CT Head Without Contrast Exam date and time: 02/11/2024 1:45 PM Age: 78 years old Clinical indication: Altered mental status/memory loss; Additional info: AMS TECHNIQUE: Imaging protocol: Computed tomography of the head without contrast. Radiation optimization: All CT scans at this facility use at least one of these dose optimization techniques: automated exposure control; mA and/or kV adjustment per patient size (includes targeted exams where dose is matched to clinical indication); or iterative reconstruction. COMPARISON: No relevant prior studies available. RADIATION DOSE METRICS: Total DLP (mGy-cm): 1188.64 FINDINGS: Brain: There is diffuse cerebral atrophy and chronic microvascular white matter disease. There is no significant mass effect or midline shift. There is no acute intracranial hemorrhage. Cerebral ventricles: There is mild ex vacuo dilation of the lateral ventricles. The basal cisterns are unremarkable. Paranasal sinuses: The paranasal sinuses are clear. Mastoid air cells: The mastoid air cells are clear. Bones: The calvarium is intact. Soft tissues: The visible extracranial soft tissues are unremarkable. CT/CT head wo con* [id number] IMPRESSION: No acute intracranial abnormality.
[2024-02-11 13:19] LABS: Lipase 26 U/L (13-60); Troponin 5 2HR Delta -11.08 ABS# (0-10)
[2024-02-11] MEDS: vancomycin 1,000 MG in sodium chloride 0.9% 250 ML 250 MG IV (13:38)
[2024-02-11] MEDS: piperacillin-tazobactam 3.375 GM in sodium chloride 0.9% (plus) 50 ML IV ×2 (13:39→20:50)
[2024-02-11 13:40] LABS: ABG PCO2 36.2 mmHg (35-45); ABG PH Result 7.36 (7.35-7.45); Base Excess ABG -4.2 mmol/L (-2.0-2.0); Blood Gas Allen Test Pos; Blood Gas Operator Identificat WALCI; Blood Gas Sample Site Radial, right; Blood Gas Sample Type Arterial; Carboxyhemoglobin 1.4 %THgb (0.4-20.1); HCO3 ABG 20.6 mmol/L (22-26); HGB O2 Sat 94.6 % (95-100); Ionized Calcium Level - ABG 1.2 mmol/L (1.1-1.4); Methemoglobin 0.1 % (0.4-1.5); Oxygen Device NC; Oxygen Saturation ABG 96.1; PO2 ABG 81.4 mmHg (80.0-100.0); Potassium Level - ABG 3.9 mmol/L (3.5-5.0); Total Hemoglobin 12.4 g/dL (14-18)
--- NOTE | 2024-02-11 13:43 | USCV_ITS ---
Sridhar Mercado Age: 78 Gender: M : 1945 Exam Date: 02/11/2024 16:04 Ordering Phys: Brian Israel MD Technologist: Derrell Galvez Exam Location: [facility] Indication: sob BP: / HR: Rhythm: Sinus Technical Quality: Suboptimal MEASUREMENTS (Male / Female) Normal Values FINDINGS Left Ventricle Normal left ventricular cavity size. Mild left ventricular hypertrophy. Normal left ventricular systolic function. No regional wall motion abnormalities. Left ventricular ejection fraction is estimated at 60 %. Rhythm precludes evaluation of diastolic function. Right Ventricle Normal right ventricular size and systolic function. Right Atrium The right atrium is normal in size. Left Atrium The left atrium is normal in size. Mitral Valve Structurally normal mitral valve. Mild mitral valve regurgitation. Aortic Valve Structurally normal aortic valve without significant sclerosis or stenosis. There is no aortic regurgitation. Tricuspid Valve Structurally normal tricuspid valve. [id number] tricuspid valve regurgitation. Pulmonic Valve Pulmonic valve not well visualized. Mild pulmonary valve regurgitation. Pericardium Normal pericardium without effusion. Aorta Normal ascending aorta dimension. IVC Inferior vena cava not visualized. CONCLUSIONS Normal left ventricular cavity size. Mild left ventricular hypertrophy. Normal left ventricular systolic function. No regional wall motion abnormalities. Left ventricular ejection fraction is estimated at 60 %. Rhythm precludes evaluation of diastolic function. Structurally normal mitral valve. Mild mitral valve regurgitation. Previous study was less than 2 months ago. There is no change. Dr. Grant Lewis MD (Electronically Signed) Final Date: 11 February 2024 17:10 S
--- NOTE | 2024-02-11 13:43 | USR_ITS ---
PROCEDURE INFORMATION: Exam: US Duplex Lower Extremity Veins, Bilateral Exam date and time: 02/11/2024 3:02 PM Age: 78 years old Clinical indication: Edema, localized; Lower extremity, bilateral; Additional info: [place] TECHNIQUE: Imaging protocol: Real-time duplex ultrasound of the bilateral extremities with 2-D stewart scale, color Doppler flow and spectral waveform analysis including responses to compression and other maneuvers (when performed) with image documentation. Complete exam focused on the lower extremity veins. COMPARISON: CT abdomen pelvis w con* [id number] 02/11/2024 12:16 PM FINDINGS: Right deep veins: Unremarkable. The common femoral, femoral, proximal profunda femoral and popliteal veins are patent without thrombus. Normal Doppler waveforms. Normal compressibility and/or augmentation response. Left deep veins: Unremarkable. The common femoral, femoral, proximal profunda femoral and popliteal veins are patent without thrombus. Normal Doppler waveforms. Normal compressibility and/or augmentation response. Superficial veins: Greater saphenous veins at the saphenofemoral junctions are patent bilaterally without thrombus. Soft tissues: There is a 4.8 cm Nathan's cyst in the right popliteal fossa. There is a 4.3 cm nathan cyst in the left popliteal fossa. There is subcutaneous edema in the right lower leg. There is subcutaneous edema in the distal left thigh and lower leg. US/CV venous duplex [facility] [id number] IMPRESSION: No deep venous thrombosis.
--- NOTE | 2024-02-11 13:44 | P.HP_ITS ---
Providers/Chief Complaint 2 Admitting Physician: Brian Israel MD Chief Complaint: WEAKNESS; FALL History of Present Illness Sridhar Mercado is a 78 year old male with a past medical history of atrial fibrillation, on Eliquis, history of CAD, who presents to [facility] due to weakness, fatigue, malaise, altered mental status, diffuse muscle skeletal aches and pains, 2 falls in the last week. Currently patient is alert to person, to place, not to time, he can follow commands can answer questions, but is quite encephalopathic. Patient's is at bedside, she does not for the last week, patient has slowly declined, he had 2 falls over the last week, no significant head trauma, no loss of consciousness, he has been complaining of weakness, fatigue, malaise, diarrhea, diffuse musculoskeletal aches and pains, abdominal pain complaints, shortness of breath. For the last 48 hours, family was not able to get him out of bed, due to generalized weakness, he does report fatigue, malaise, fevers, chills, shortness of breath, diffuse musculoskeletal aches and pain he denies any chest pain, he does have bilateral extremity edema, 2+, which is new, does report feeling lightheaded Review of Systems 2 Const: Reports: chills, fatigue and malaise Card: Denies: chest pain Resp: Reports: dyspnea GI: Reports: abdominal pain : Reports: flank pain Musc: Reports: back pain Skin/Breast: Reports: rash Neuro: Denies: headache(s) Medications/Allergies Home Medications Medication Instructions Recorded Confirmed Last Taken Type allopurinol 300 mg tablet 300 mg PO QDAY 08/23/19 12/14/23 Unknown History atenolol 50 mg tablet 25 mg PO QDAY 08/23/19 12/14/23 Unknown History clopidogrel 75 mg tablet 75 mg PO QDAY 08/23/19 12/14/23 Unknown History multivitamin 1 tab PO QAM 08/23/19 12/14/23 Unknown History rosuvastatin 20 mg tablet (Crestor) 20 mg PO QDAY 08/23/19 12/14/23 Unknown History vitamin B complex (B 1 tab PO DAILY 02/20/20 12/14/23 Unknown History Complex-Vitamin B12 tablet) lisinopril 40 mg tablet 40 mg PO QDAY 08/19/20 12/14/23 Unknown History isosorbide mononitrate 30 mg See Rx Instructions .Route 09/23/23 12/14/23 Unknown Rx tablet,extended release 24 hr .COMPLEX #90 tabs apixaban 2.5 mg tablet (Eliquis) 2.5 mg PO BID #90 tabs 12/02/23 12/14/23 Unknown Rx amlodipine 5 mg tablet 10 mg PO DAILY 01/16/24 Unknown History furosemide 20 mg tablet (Lasix) 20 mg PO DAILY #30 tabs 01/16/24 Unknown Rx Allergies Allergy/AdvReac Type Severity Reaction Status Date / Time No Known Allergies Allergy Verified 12/14/23 11:11 PFSH Acute 2 PFSH: Medical History Atrial fibrillation Carotid stenosis Gout CAD (coronary artery disease) Pt had PCI in December of 2010 three stents Hyperlipidemia Hypertension Ventricular arrhythmia Surgical History H/O left wrist surgery History of mandibular surgery History of appendectomy S/P cholecystectomy Previous back surgery History of total hip replacement Family History Father CAD (coronary artery disease) Mother CAD (coronary artery disease) Diabetes Brother CAD (coronary artery disease) Diabetes Sister CAD (coronary artery disease) Cancer Diabetes Other Hypertension Denies family history of Clotting disorder Dementia Chronic kidney disease (CKD) Suicide Anesthesia complication Bleeding disorder Lung disease Stroke Social History Smoking and tobacco/nicotine status: former use of tobacco/nicotine Alcohol intake: never Substance/Drug Use: never Vitals/I&O/Wt Last Vital Signs Temp 98.3 F 02/11/24 10:07 Pulse 84 02/11/24 13:30 Resp 28 H 02/11/24 13:30 BP 120/55 02/11/24 13:30 Pulse Ox 94 02/11/24 13:30 O2 Del Method Nasal Cannula 02/11/24 11:15 O2 Flow Rate 2 02/11/24 11:15 02/10/24 02/11/24 02/11/24 22:59 06:59 14:59 Intake Total 2120 Balance 2120 Weight last 48 hrs Weight 82.554 kg Physical Exam 2 Const: COMMON NORMALS: no acute distress EXAM LIMITATIONS: altered mental status ORIENTATION/CONSCIOUSNESS: Yes awake, Yes oriented to person and Yes confused; not oriented to place and not oriented to time HENMT: COMMON NORMALS: normocephalic HEAD & SCALP: normocephalic Eye: COMMON NORMALS: Equal, round and reactive pupils present Neck/C-Spine: COMMON NORMALS: no lymphadenopathy Resp: COMMON NORMALS: normal respiratory effort, No retractions and No use of accessory muscles AUSCULTATION: crackles and wheezes Cardio: COMMON NORMALS: regular rate, regular rhythm, S1 normal heart sound present and S2 normal heart sound present RATE: tachycardic RHYTHM: r egular rhythm HEART SOUNDS: S1 normal heart sound present and S2 normal heart sound present GI: COMMON NORMALS: Normal to inspection, nondistended, normoactive bowel sounds present and Soft to palpation Extremity: NARRATIVE EXTREMITY EXAM: Difficult to follow neurologic testing, 2+ pitting edema bilateral extremity, Neuro: COMMON NORMALS: moves all extremities Urinary Catheter Management: Roy: Cath Placed During This Visit: yes Urinary Catheter Date of Insertion: 02/11/24 Urinary Catheter Time of Insertion: 10:59 Data 02/11/24 10:14 02/11/24 10:45 Micro: Microbiology 02/11/24 11:02 Blood Culture - Preliminary Blood SPECIMEN COLLECTED 02/11/24 11:00 Blood Culture - Preliminary Blood SPECIMEN COLLECTED A&P Assessment and plan (1) Acute encephalopathy: (2) Hypertension: Qualifiers: Hypertension type: essential hypertension Qualified Code(s): I10 - Essential (primary) hypertension (3) CAD (coronary artery disease): Qualifiers: Coronary Disease-Associated Artery/Lesion type: moapa artery [place] vs. transplanted heart: moapa heart Associated angina: without angina Qualified Code(s): I25.10 - Atherosclerotic heart disease of [place] coronary artery without angina pectoris (4) Atrial fibrillation: Qualifiers: Atrial fibrillation type: persistent (not longstanding) Qualified Code(s): I48.19 - Other persistent atrial fibrillation (5) Hyperlipidemia: Qualifiers: Hyperlipidemia type: mixed hyperlipidemia Qualified Code(s): E78.2 - Mixed hyperlipidemia (6) Sepsis: (7) Cellulitis: (8) Rhabdomyolysis: (9) SOB (shortness of breath): (10) Pneumonia: (11) NSTEMI (non-ST elevated myocardial infarction): (12) Acute kidney injury: (13) CHF exacerbation: (14) Transaminitis: (15) Hyperbilirubinemia: (16) Physical deconditioning: (17) Falls: (18) UTI (urinary tract infection): (19) Acute hypoxemic respiratory failure: Plan Acute encephalopathy Is likely multifactorial, from pneumonia, UTI, cellulitis, sepsis # Plan ? Keep n.p.o. # Neurochecks Aspiration precautions A CT of the head Acute hypoxic respiratory failure ? Likely secondary to fluid overload, BNP over 20,000, CHF exacerbation, 2+ pitting edema ? Concerns for pneumonia ? Plan ? Given patient's AFSHIN, elevated lactic acid will hold off on Lasix ? Has received fluid bolus in the ER, hold off on further fluid therapy ? Continue vancomycin -continue Zosyn next ?will consider Lasix based on clinical progress ? DuoNeb ? ABG Pneumonia Sputum cultures ? Blood cultures ? Respiratory viral panel UTI ? Urine culture ? Zosyn Bilateral extremity cellulitis ? Antibiotics as above CHF exacerbation ? BNP over 20,000, bilateral extremity edema, acute hypoxia ? Given AFSHIN will hold off on Lasix for now ? Venous ultrasound AFSHIN ? Likely secondary to CHF, sepsis ? Has received fluid bolus therapies next?will consider Lasix based on clinical progress Sepsis ? Sources of infection is UTI, pneumonia, cellulitis NSTEMI Serial EKGs consult troponins, telemetry monitoring ? Cardiac echo Hematuria ? Roy catheter has ryan blood Hold off on Eliquis for now Transaminitis with hyperbilirubinemia ? CT scan patient status post cholecystectomy ? No intra extrahepatic biliary dilatation ? Monitor closely ? Acute hep panel, HIV, iron studies CODE STATUS spoke to at bedside, patient is a DNR, okay with elective intubation ICU admission ? SCDs for DVT prophylaxis, Eliquis currently on hold given patient's ryan hematuria Attestations 2 Medical Necessity Statement*: Patient requires hospitalization, inpatient, greater than 2 midnights, for acute encephalopathy, rhabdomyolysis, AFSHIN, pneumonia, UTI UTI, cellulitis, transaminitis deconditioning, falls Diagnoses Acute encephalopathy G93.40 Essential hypertension I10 Hypertension type: essential hypertension Coronary artery disease involving moapa coronary artery of moapa heart without angina pectoris I25.10 Coronary Disease-Associated Artery/Lesion type: mo[place] artery [place] vs. transplanted heart: moapa heart Associated angina: without angina Persistent atrial fibrillation I48.19 Atrial fibrillation type: persistent (not longstanding) Mixed hyperlipidemia E78.2 Hyperlipidemia type: mixed hyperlipidemia Sepsis A41.9 Cellulitis L03.90 Rhabdomyolysis M62.82 SOB (shortness of breath) R06.02 Pneumonia J18.9 NSTEMI (non-ST elevated myocardial infarction) I21.4 Acute kidney injury N17.9 CHF exacerbation I50.9 Transaminitis R74.01 Hyperbilirubinemia E80.6 Physical deconditioning R53.81 Falls R29.6 UTI (urinary tract infection) N39.0 Acute hypoxemic respiratory failure J96.01
[2024-02-11 13:50] LABS: NT Pro B Type Natriuretic Pept 21343 pg/mL (0-450); Procalcitonin 17.37 ng/mL (0-0.5)
[2024-02-11 13:52] LABS: HIV 1 & 2 Antibody Non-Reactive (Non-Reactiv); HIV 1 & 2 Antigen Non-Reactive (Non-Reactiv)
[2024-02-11 13:55] LABS: Hepatitis A Antibody IgM Non-Reactive (Nonreactive); Hepatitis B Core IgM Non-Reactive (Nonreactive); Hepatitis B Surface Antigen Non-Reactive (Nonreactive); Hepatitis C Virus Antibody Non-Reactive (Nonreactive)
[2024-02-11 14:01] LABS: Ferritin 823 ng/mL (30-400); Iron 14 ug/dL (59-158); Total Iron Binding Capacity 100 mcg/dl; Unsaturated Iron Binding 86 ug/dL (112-347)
[2024-02-11 14:10] LABS: Alcohol Level < 10 mg/dL (0-10)
[2024-02-11 14:56] LABS: Chol HDL Ratio 4.11 mg/dL (1.0-5.00); Cholesterol 37 mg/dL (0-200); HDL Cholesterol 9 mg/dL (60-100); LDL Cholesterol Calculated 8 mg/dL (50-129); LDL HDL Ratio 0.89 RATIO (0.00-3.22); Thyroid Stimulating Hormone 2.49 uIU/mL (0.27-4.20); Triglycerides 98 mg/dL (0-150)
[2024-02-11 14:57] LABS: Ammonia 46 umol/L (16-60)
[2024-02-11 14:58] LABS: Estmated Average Glucose 131; Hemoglobin A1C 6.2 % (4.0-6.0)
--- NOTE | 2024-02-11 16:09 | ECG_ITS ---
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 Measurements Intervals [place] Rate: 82 P: 0 AK: 0 QRS: 55 QRSD: 138 T: -34 QT: 365 QTc: 427 Interpretive Statements ATRIAL FIBRILLATION WITH ABERRANT CONDUCTION OR VENTRICULAR PREMATURE COMPLEXES RIGHT BUNDLE BRANCH BLOCK [120+ ms QRS DURATION, UPRIGHT V1, 40+ ms S IN I/aVL/V4/V5/V6] ANTEROSEPTAL MYOCARDIAL INFARCTION , OF INDETERMINATE AGE [40+ ms Q WAVE IN V1-V4] Compared to ECG 02/11/2024 12:30:02 Ventricular premature complex(es) now present Aberrant conduction of supraventricular beat(s) now present Myocardial infarct finding now present Indeterminate axis no longer present Electronically Signed On 02-12-2024 7:13:17 CDT by Grant Lewis M.D. [id number]
[2024-02-11] MEDS: ipratropium-albuterol 3 mL Neb INHALATION ×2 (16:34→20:33)
[2024-02-11] MEDS: clopidogrel 75 mg Tablet PO (16:44)
[2024-02-11] MEDS: pantoprazole 40 mg SDV IVP (16:44)
[2024-02-11 17:18] LABS: Troponin 5 6HR 84.74 ng/L (0-15)
[2024-02-11 17:19] LABS: Troponin 5 6HR Delta -2.26 ng/L (0-12)
[2024-02-11 18:43] LABS: Adenovirus Not Detected (NOT DETECT); Chlamydia Pneumoniae Not Detected (NOT DETECT); Coronavirus 229E,HKU1,NL63,OC4 Not Detected (NOT DETECT); Human Metapneumovirus Not Detected (NOT DETECT); Human Rhinovirus/Enterovirus Not Detected (NOT DETECT); Influenza A Not Detected (NOT DETECT); Influenza A H1 Not Detected (NOT DETECT); Influenza A H1-2009 Not Detected (NOT DETECT); Influenza A H3 Not Detected (NOT DETECT); Influenza B Not Detected (NOT DETECT); Mycoplasma Pneumoniae Not Detected (NOT DETECT); Parainfluenza Virus Type 1 Not Detected (NOT DETECT); Parainfluenza Virus Type 2 Not Detected (NOT DETECT); Parainfluenza Virus Type 3 Not Detected (NOT DETECT); Parainfluenza Virus Type 4 Not Detected (NOT DETECT); Respiratory Syncytial Virus A Not Detected (NOT DETECT); Respiratory Syncytial Virus B Not Detected (NOT DETECT); SARS-COV-2 Not Detected (NOT DETECT)
[2024-02-11] MEDS: atorvastatin 40 mg Tablet PO (20:50)
[2024-02-12] VITALS (217 sets, daily range): BP systolic 70–152; BP diastolic 42–84; PULSE 76–117; RESP 15–39; TEMP 37.2–37.9; O2SAT 89–100
--- NOTE | 2024-02-12 01:37 | XRR_ITS ---
PROCEDURE INFORMATION: Exam: XR Chest Exam date and time: 02/12/2024 1:48 AM Age: 78 years old Clinical indication: Cough and wheezing; Prior surgery; Surgery date: 6+ months; Surgery type: Gb; Patient HX: Cough with audible rales; Additional info: Dyspnea/cough TECHNIQUE: Imaging protocol: Radiologic exam of the chest. Views: 1 view. COMPARISON: CR (CHEST, ) 02/11/2024 11:15 AM FINDINGS: Lungs: Moderate COPD. Diffuse interstitial infiltrates/edema/scarring again seen. Minute effusions. Pleural spaces: No pneumothorax. Heart/Mediastinum: Heart remains enlarged. Diffuse vascular calcification. Bones/joints: Unremarkable. XR/XR chest 1V portable [id number] IMPRESSION: Unimproved exam from prior day.
[2024-02-12 02:08] LABS: Bacillus cereus group Not Detected (NOT DETECT); Bacillus subtillis group Not Detected (NOT DETECT); Corynebacterium Not Detected (NOT DETECT); Cutibacterium acnes (P.acnes) Not Detected (NOT DETECT); Enterococcus Not Detected (NOT DETECT); Enterococcus faecalis Not Detected (NOT DETECT); Enterococcus faecium Not Detected (NOT DETECT); Lactobacillus species Not Detected (NOT DETECT); Listeria Not Detected (NOT DETECT); Listeria monocytogenes Not Detected (NOT DETECT); Micrococcus Not Detected (NOT DETECT); Pan Candida Not Detected (NOT DETECT); Pan Gram-Negative Not Detected (NOT DETECT); Staphylococcus epidermidis Not Detected (NOT DETECT); Staphylococcus lugdunensis Not Detected (NOT DETECT); Staphylococcus species Not Detected (NOT DETECT); Streptococcus agalactiae Not Detected (NOT DETECT); Streptococcus anginosus group Not Detected (NOT DETECT); Streptococcus pneumoniae Not Detected (NOT DETECT); Streptococcus pyogenes Not Detected (NOT DETECT); Streptococcus species Detected (NOT DETECT)
[2024-02-12 02:55] LABS: Hematocrit 38.5 % (37-53); Lymphocytes # 0.6 10^3/uL (0.8-4.8); Lymphocytes % 1.9 %; Mean Corpuscular Hemoglobin 33.2 pg (27-33); Mean Corpuscular Volume 97.7 fl (82-101); Mean Platelet Volume 9.1 fL (7.4-10.4); Monocytes # 0.3 10^3/uL (0.2-0.9); Monocytes % 1.1 %; Neutrophils # 28.38 10^3/uL (1.8-7.7); Neutrophils % 92.8 %; Nucleated Red Blood Cells % 0 %; Platelet Count 143 10^3/cmm (157-399); Red Blood Count 3.94 10^6/uL (3.85-5.65); Red Cell Distribution Width 14.5 % (12.1-15.1)
[2024-02-12 03:14] LABS: Lactic Sepsis W/Reflex 3.5 mmol/L (0.5-2.2)
[2024-02-12 03:26] LABS: NT Pro B Type Natriuretic Pept 32728 pg/mL (0-450); Procalcitonin 24.55 ng/mL (0-0.5)
[2024-02-12] MEDS: pantoprazole 40 mg SDV IVP ×2 (03:29→16:06)
[2024-02-12] MEDS: FUROsemide 10 mg/mL SDV 4mL 20 MG IVP (03:29)
[2024-02-12 03:39] LABS: Alanine Aminotransferase 98 U/L (0-41); Albumin Level 2.3 g/dL (3.5-5.2); Alkaline Phosphatase 152 U/L (40-130); Anion Gap 21.2 (5-19); Aspartate Amino Transferase 250 U/L (0-40); Blood Urea Nitrogen 71 mg/dL (8-23); Calcium 8.9 mg/dL (8.5-10.5); Carbon Dioxide 18 mmol/L (22-29); Chloride 96 mmol/L (98-107); Creatinine Clr Calc Pharmacy 45.1297; Globulin 3.4 g/dL (1.3-4.6); Glucose 98 mg/dL (65-115); Magnesium 2.3 mg/dL (1.7-2.3); Osmolality Calculated 293 mOsm/kg (285-295); Phosphorus 5.2 mg/dL (2.5-4.5); Potassium 4.2 mmol/L (3.5-5.1); Sodium 131 mmol/L (136-145); Total Bilirubin 2.8 mg/dL (0.15-1.2); Total Protein 5.7 g/dL (6.6-8.7)
[2024-02-12 04:28] LABS: C Reactive Protein 492.1 mg/L (0.0-4.9)
[2024-02-12 04:29] LABS: Slide Review Slide Review Perform
[2024-02-12 04:31] LABS: Creatine Phosphokinase 1054 U/L (39-308); White Blood Count 30.57 10^3/uL (3.29-11.43)
[2024-02-12 04:38] LABS: Reflex Lactate Order REFLEX LACTIC ORDERD
[2024-02-12] MEDS: piperacillin-tazobactam 3.375 GM in sodium chloride 0.9% (plus) 50 ML IV ×3 (05:30→21:24)
[2024-02-12] MEDS: ipratropium-albuterol 3 mL Neb INHALATION ×4 (07:58→20:08)
--- NOTE | 2024-02-12 08:40 | USR_ITS ---
PROCEDURE INFORMATION: Exam: US Abdomen, Limited; Right Upper Quadrant Exam date and time: 02/12/2024 10:53 AM Age: 78 years old Clinical indication: Screening exam; Other: Evaluate intrahepatic and extra hepatic ducts; Prior surgery; Surgery date: 6+ months; Surgery type: Gb removed. Unknown dates TECHNIQUE: Imaging protocol: Real time ultrasound of the abdomen with image documentation. Limited exam focused on the right upper quadrant. COMPARISON: CT abdomen pelvis w con* [id number] 02/11/2024 12:16 PM FINDINGS: Liver: Unremarkable. Gallbladder: Surgically absent. Biliary ducts: No stones. No ductal dilatation. Pancreas: Suboptimally visualized. Right kidney: 4.1 x 6 x 7.9 cm exophytic upper pole cyst. No solid mass. No definite stones. No hydronephrosis. US/US liver [id number] IMPRESSION: No acute sonographic findings.
[2024-02-12] MEDS: heparin drip 25,000 UNIT/500 ML PREMIX 30 UNIT IV (08:48)
--- NOTE | 2024-02-12 08:58 | PC.NURSE ---
Heparin drip: Verbal order from Dr. Israel not to give heparin bolus. Heparin drip on pause pending PICC line placement.
--- NOTE | 2024-02-12 09:10 | XRR_ITS ---
PROCEDURE INFORMATION: Exam: XR Chest Exam date and time: 02/12/2024 10:14 AM Age: 78 years old Clinical indication: Device placement; Other: Piccline, og and ett placement; Additional info: Post picc insertion, yoav placing in icu 7. Should be ready at 0950 TECHNIQUE: Imaging protocol: Radiologic exam of the chest. Views: 1 view. COMPARISON: CR (CHEST, ) 02/12/2024 1:48 AM FINDINGS: Tubes, catheters and devices: Interval placement endotracheal tube with tip positioned 3 cm above the tony. Right-sided PICC line with tip in SVC now present. Nasogastric tube extends into the left upper quadrant of the abdomen. Lungs: Suboptimal pulmonary expansion with associated accentuation of bronchovascular markings. Mild pulmonary vascular congestion. Pleural spaces: No discrete pleural effusion. Heart/Mediastinum: Unremarkable. Diaphragm: Elevated right hemidiaphragm. Bones/joints: No significant pathology. XR/XR chest 1V portable [id number] IMPRESSION: Interval placement of support lines. Low lung volumes with pulmonary vascular congestion.
[2024-02-12] MEDS: norepinephrine 4 MG/250 ML BAG 30 MG IV (09:40)
[2024-02-12] MEDS: succinylcholine 20 mg/mL SDV 10mL 200 MG (09:42)
[2024-02-12] MEDS: propofol 10 mg/mL SDV 20 mL 200 MG (09:42)
[2024-02-12] MEDS: fentaNYL 2,500 MCG/250 ML BAG IV (09:44)
--- NOTE | 2024-02-12 09:59 | PC.NURSE ---
Event: Dr. Israel to bedside, patient unresponsive to verbal or painful stimuli, anaesthesia contacted for emergent intubation, Dr. Israel spoke with patients via telephone for update in patient condition and consent for PICC line placement. 926 50 propofol given by anesthesiologist, 927 120 succinylcholine given by anasthesiologist. [address], size 0.8 25 at lip. Oxygen saturation 100% on monitor. PICC line access team placing line at the time of this note, see further documentation for placement. See MAR for medication administration.
[2024-02-12] MEDS: dexmedeTOMIDine 0.9 % NaCL 400 MCG/100 ML PREMIX IV (10:16)
[2024-02-12] MEDS: sodium bicarbonate 8.4% 1 mEq/mL 50mL Syr 50 MEQ IVP (10:26)
[2024-02-12] MEDS: FUROsemide 10 mg/mL SDV 4mL 40 MG IVP ×2 (10:28→17:04)
--- NOTE | 2024-02-12 10:45 | PICC.NOTE ---
Triple lumen PICC placed to right basilic vein. Referred to vascular access nurse for PICC placement due to poor access and need for vasopressors. Risks and benefits discussed with pt via phone per Dr. Israel and informed consent obtained. Right arm assessed with right basilic vein measuring 4.4 mm, straight, and apparent best choice for placement. Using sterile technique and MST, right basilic vein accessed x 1 stick. Mid-arm circumference measured 10 cm from right AC 32 cm. Trimmed cath 51 cm with 0 cm external length noted. CXR shows tip to appear to be in the distal SVC, awaiting on Vrad to read. Line secured with stat-lock. Insertion site covered with Biopatch, gauze, and TSM. Report given to bedside nurse, BERENICE Zhu.
--- NOTE | 2024-02-12 10:49 | P.ANES_ITS ---
Anesthesia Procedures Procedure/Date: 02/12/24 Intubation: Time Out Performed: No Consent: requested by attending/covering physician Sedative (amount): other (Propofol) Paralytic (amount): succinyl choline Laryngoscope: fiber optic video scope ET Tube Size: 8 ET Tube Uncuffed: Yes Tube Secured Depth (cm): 24 Tube Placement Confirmation: visualized tube passing through cords, equal breath sounds bilaterally and color change noted Patient Tolerated Procedure: well and no complications Intubation Complications: none Additional Comments: CXR ordered
[2024-02-12 10:58] LABS: ABG PCO2 36.1 mmHg (35-45); Alveolar-Arterial Oxygen Gradi 39.9 mmHg (5-10); Base Excess ABG -2.3 mmol/L (-2.0-2.0); Blood Gas Allen Test Pos; Blood Gas Operator Identificat MONRO; Blood Gas Sample Site Radial, left; Blood Gas Sample Type Arterial; Carboxyhemoglobin 0.9 %THgb (0.4-20.1); HCO3 ABG 22.1 mmol/L (22-26); HGB O2 Sat 99.5 % (95-100); Ionized Calcium Level - ABG 1.2 mmol/L (1.1-1.4); Methemoglobin 0.2 % (0.4-1.5); Oxygen Device VENT; Oxygen Saturation ABG > 100.0; PO2 FiO2 Ratio Arterial Blood 354
[2024-02-12] MEDS: vasopressin 40 UNIT/100 ML PREMIX IV (11:12)
[2024-02-12] MEDS: midazolam 1 mg/mL INJ 2 mL 2 MG IVP (11:18)
[2024-02-12 12:25] LABS: INR 2.13 (0.8-1.2)
[2024-02-12] MEDS: norepinephrine 4 MG/250 ML BAG 67.5 MG IV (13:08)
[2024-02-12] MEDS: vancomycin 1,250 MG/250 ML PIGGYBACK 250 MG IV (13:09)
[2024-02-12] MEDS: dexmedeTOMIDine 0.9 % NaCL 400 MCG/100 ML PREMIX 20.83 MCG IV ×3 (13:23→22:16)
--- NOTE | 2024-02-12 13:50 | P.CONIM_ITS ---
Providers/Reason For Consult 2 Consulting Physician/Specialty*: kommana/Nephrology Reason for Consult*: AFSHIN Attending Physician: Brian Israel MD History of Present Illness History of Present Illness Sridhar Mercado is a 78 year old male Patient is a 78-year-old male with multiple medical problems including A-fib, coronary artery disease, hypertension,, dyslipidemia presented to the emergency department on 02/11/2024 due to generalized weakness fatigue and was noted to have altered mental status and encephalopathy. Family reported that patient had suffered 2 falls at home and has progressively declined in the last few days. In the emergency department vital signs are stable and his lab data significant for WBC count of 27,000 sodium 128 CO2 28 BUN of 63 and creatinine of 1.3. BNP was elevated, chest x-ray showed pulmonary edema and possible pneumonia. UA was consistent with UTI. Patient was placed on broad-spectrum antibiotics due to sepsis secondary to possible pneumonia and UTI. Patient progressively gotten worse in the last 24 hours send this morning patient was intubated and transferred to ICU. Patient currently on Levophed. Made only 100 cc of urine all day. Patient currently intubated Medications/Allergies Home Medications Medication Instructions Recorded Confirmed Last Taken Type allopurinol 300 mg tablet 300 mg PO QDAY 08/23/19 12/14/23 Unknown History atenolol 50 mg tablet 25 mg PO QDAY 08/23/19 12/14/23 Unknown History clopidogrel 75 mg tablet 75 mg PO QDAY 08/23/19 12/14/23 Unknown History multivitamin 1 tab PO QAM 08/23/19 12/14/23 Unknown History rosuvastatin 20 mg tablet (Crestor) 20 mg PO QDAY 08/23/19 12/14/23 Unknown History vitamin B complex (B 1 tab PO DAILY 02/20/20 12/14/23 Unknown History Complex-Vitamin B12 tablet) lisinopril 40 mg tablet 40 mg PO QDAY 08/19/20 12/14/23 Unknown History isosorbide mononitrate 30 mg See Rx Instructions .Route 09/23/23 12/14/23 Unknown Rx tablet,extended release 24 hr .COMPLEX #90 tabs apixaban 2.5 mg tablet (Eliquis) 2.5 mg PO BID #90 tabs 12/02/23 12/14/23 Unknown Rx amlodipine 5 mg tablet 10 mg PO DAILY 01/16/24 Unknown History furosemide 20 mg tablet (Lasix) 20 mg PO DAILY #30 tabs 01/16/24 Unknown Rx Allergies Allergy/AdvReac Type Severity Reaction Status Date / Time No Known Allergies Allergy Verified 12/14/23 11:11 Current Medications Generic Name Dose Route Start Last Admin Trade Name Freq PRN Reason Stop Dose Admin Albuterol/Ipratropium 3 ml 02/11/24 16:00 02/12/24 11:26 Ipratropium-Albuterol 3 Ml Neb INHALATION 3 ml QID.RESPIRATORY DALE Administration Atorvastatin Calcium 40 mg 02/11/24 21:00 02/11/24 20:50 Atorvastatin 40 Mg Tablet PO 40 mg BEDTIME DALE Administration Clopidogrel Bisulfate 75 mg 02/11/24 14:30 02/12/24 09:45 Clopidogrel 75 Mg Tablet PO Not Given DAILY DALE Piperacillin Sod/Tazobactam 50 mls @ 12.5 mls/hr 02/11/24 21:30 02/12/24 13:17 Sod 3.375 gm/ Sodium Chloride IV 12.5 mls/hr Q8H DALE Administration Vancomycin/PEG/NADA/Lysine/Water 1,250 mg in 250 mls @ 250 mls/hr 02/12/24 13:00 02/12/24 13:09 Vancocin IV 250 mls/hr Q24H DALE Administration Heparin Sodium/Sodium Chloride 25,000 unit in 500 mls @ 0 mls/hr 02/12/24 08:45 02/12/24 10:45 Heparin Drip IV 14.4 unit/kg/hr .Q0M DALE 30 mls/hr Titration Protocol Per Protocol Norepinephrine Bitartrate 4 mg in 250 mls @ 0 mls/hr 02/12/24 08:45 02/12/24 13:08 Levophed IV 18 mcg/min .Q0M DALE 67.5 mls/hr Administration Protocol Per Protocol Dexmedetomidine/Sodium Chloride 400 mcg in 100 mls @ 0 mls/hr 02/12/24 09:30 02/12/24 13:23 Precedex IV 0.8 mcg/kg/hr .Q0M DALE 20.83 mls/hr Administration Protocol Per Protocol Fentanyl 2,500 mcg in 250 mls @ 0 mls/hr 02/12/24 09:45 02/12/24 11:17 Sublimaze IV 175 mcg/hr .Q0M DALE 17.5 mls/hr Titration Protocol Per Protocol Vasopressin 40 unit in 100 mls @ 0 mls/hr 02/12/24 11:00 02/12/24 13:38 Vasostrict IV 0 unit/min .Q0M DALE 0 mls/hr Titration Protocol Per Protocol Pantoprazole Sodium 40 mg 02/11/24 14:25 02/12/24 03:29 Pantoprazole 40 Mg Sdv IVP 40 mg Q12H DALE Administration PFSH Acute 2 PFSH: Medical History Atrial fibrillation Carotid stenosis Gout CAD (coronary artery disease) Pt had PCI in December of 2010 three stents Hyperlipidemia Hypertension Ventricular arrhythmia Surgical History H/O left wrist surgery History of mandibular surgery History of appendectomy S/P cholecystectomy Previous back surgery History of total hip replacement Family History Father CAD (coronary artery disease) Mother CAD (coronary artery disease) Diabetes Brother CAD (coronary artery disease) Diabetes Sister CAD (coronary artery disease) Cancer Diabetes Other Hypertension Denies family history of Clotting disorder Dementia Chronic kidney disease (CKD) Suicide Anesthesia complication Bleeding disorder Lung disease Stroke Social History Smoking and tobacco/nicotine status: former use of tobacco/nicotine Alcohol intake: never Substance/Drug Use: never Vitals/I&O/Wt Last Vital Signs Temp 99.4 F 02/12/24 12:10 Pulse 100 02/12/24 12:10 Resp 23 H 02/12/24 11:30 BP 107/64 02/12/24 12:10 Pulse Ox 95 02/12/24 12:10 O2 Del Method Mechanical Ventilation 02/12/24 12:10 O2 Flow Rate 2 02/12/24 07:59 FiO2 36 02/12/24 12:15 02/11/24 02/12/24 02/12/24 22:59 06:59 14:59 Intake Total 120 / 2541 50 / 2591 290.406 / 290.406 Output Total 170 / 170 300 / 470 Balance -50 / 2371 -250 / 2121 290.406 / 290.406 Weight last 48 hrs Weight 104.145 kg Weight 116.687 kg Weight 82.554 kg Physical Exam 2 Narrative: INTUBATED , SEDATED ON PRESSORS Urinary Catheter Management: Roy: Cath Placed During This Visit: yes Reason for Continuing Indwelling Catheter: Accurate Measurement of Urinary Output in Critically Ill Patients Urinary Catheter Date of Insertion: 02/11/24 Urinary Catheter Time of Insertion: 10:59 Data 02/12/24 02:41 02/12/24 02:41 Micro: Microbiology 02/11/24 11:00 Blood Culture - Preliminary Blood NEGATIVE TO DATE 02/11/24 11:02 Blood Culture - Preliminary Blood A&P Assessment and plan (1) Acute kidney injury: Plan 1. acute kidney injury: Baseline creatinine was normal in December 2023. Now has an AFSHIN with a creatinine of 1.7-likely ATN in the setting of acute infection, patient also received IV contrast with CT-renal function may get further worse. -Currently on pressors, continue to monitor renal function, though patient do not have acute indication for dialysis currently , suspect that patient may require temporary dialysis if renal function continues to get worse. CRRT would be more appropriate due to hypotension -Avoid further IV contrast exposure and nephrotoxic drugs. 2. Septic shock in the setting of pneumonia and possible UTI, on pressors 3. Acute on chronic respiratory failure: Multifactorial -due to pneumonia and possible CHF 4. Metabolic acidosis: Mild, likely from lactic acidosis, monitor 5. Hyponatremia, mild monitor Patient evaluated using audiovisual cart. Time spent 40 min Consult Attestations 2 Medical Necessity Statement: per piotr Coding Level of Care Code Acute Code for [facility] Diagnoses Acute kidney injury N17.9
--- NOTE | 2024-02-12 15:25 | PC.NURSE ---
Patients at bedside, update given, had no questions at that time.
[2024-02-12] MEDS: norepinephrine 4 MG/250 ML BAG 75 MG IV (16:42)
[2024-02-12 17:40] LABS: Anion Gap 20.3 (5-19); Blood Urea Nitrogen 80 mg/dL (8-23); Calcium 8.1 mg/dL (8.5-10.5); Carbon Dioxide 19 mmol/L (22-29); Chloride 98 mmol/L (98-107); Creatinine Clr Calc Pharmacy 34.4764; Glucose 143 mg/dL (65-115); Osmolality Calculated 303 mOsm/kg (285-295); Potassium 4.3 mmol/L (3.5-5.1); Sodium 133 mmol/L (136-145)
--- NOTE | 2024-02-12 17:40 | P.PN_ITS ---
Subjective 2 Subjective: Patient was examined multiple times throughout the morning and into the afternoon # During the morning he was examined, placed on BiPAP early in the morning due to worsening respiratory failure ? Currently patient is alert oriented x 0, does not follow commands, does not respond to sternal rub, GCS less than 7, evidence of acute respiratory failure with acute respiratory distress Is concerning for worsening sepsis, septic shock acute renal failure, fluid overload, ? Patient's status is critical, prognosis guarded, I spoke to patient's , about patient's respiratory failure, will have to intubate him to protect his airway, to help with his respiratory status, monitor his urine output, he potentially might need dialysis will have to talk to nephrology discussed risk and benefits of intubation, she voiced understanding, all present agreed to proceed ? Patient was intubated by anesthesiologist who I consulted Patient had PICC line placed Is seen after intubation PICC line placement, currently on 10 of Levophed, intubated, sedated, ? I had a family meeting with the patient's , about patient's critical status, prognosis guarded # Currently patient is in acute hypoxic respiratory failure secondary to sepsis, pneumonia, acute CHF exacerbation fluid overload, with evidence of sepsis, septic shock, multiorgan failure # I have his airway protected, he is on the ventilator a stable he is requiring pressors, indicating severe septic shock ? He is being treated with broad-spectrum antibiotic therapy, will follow his cultures, follow his shock ? Discussed his goals of care, he remains DNR, he has had episodes of nonsustained V. tach will continue to monitor rhythm, confirmed his DNR status, discussed risk and benefits, she voiced understanding, all questions answered, agreed to proceed ? We then discussed patient's lack of urine output and development of AFSHIN likely multifactorial but more significantly secondary to sepsis ? The concern will be that with his diminished urine outputs especially with his sepsis, pressor requirements, and fluid overload, he is going to possibly need dialysis -Discussed risk and benefits of temporar y dialysis, she voiced understanding, all questions answered, agreed to proceed if required ? Discussed nephrology consultation for now, will see if we can get his urine output improved, with Levophed, vasopressin, and will consider further doses of Lasix ? Spoke to nephrology, exacerbation -reexamine, continues to Levophed, requi ring vasopressin, urine output lackluster at about 400 cc,, repeat CBC, CMP, another 40 mg IV Lasix, azithromycin added ? Currently on heparin drip given history of atrial fibrillation Vitals/I&O/Wt Last Vital Signs Temp 99.4 F 02/12/24 12:10 Pulse 98 02/12/24 16:45 Resp 19 H 02/12/24 16:49 BP 98/59 02/12/24 16:45 Pulse Ox 95 02/12/24 16:49 O2 Del Method Mechanical Ventilation 02/12/24 16:45 O2 Flow Rate 2 02/12/24 07:59 FiO2 36 02/12/24 16:49 02/12/24 02/12/24 02/12/24 06:59 14:59 22:59 Intake Total 50 / 2591 654.031 / 654.031 256.375 / 910.406 Output Total 300 / 470 100 / 100 Balance -250 / 2121 654.031 / 654.031 156.375 / 810.406 Weight last 48 hrs Weight 104.145 kg Weight 116.687 kg Weight 82.554 kg Physical Exam 2 Const: COMMON NORMALS: no acute distress OTHER: Intubated, sedated, on mechanical ventilation, endotracheal tube in place Eye: COMMON NORMALS: Equal, round and reactive pupils present PUPIL: Yes Equal, round and reactive pupils present Resp: COMMON NORMALS: normal respiratory effort, No retractions and No use of accessory muscles AUSCULTATION: crackles and wheezes Cardio: COMMON NORMALS: regular rate, regular rhythm, S1 normal heart sound present and S2 normal heart sound present RATE: regular rate RHYTHM: r egular rhythm HEART SOUNDS: S1 normal heart sound present and S2 normal heart sound present GI: COMMON NORMALS: Normal to inspection, nondistended, normoactive bowel sounds present and non-tender Extremity: OTHER: 4+ pitting edema, with bilateral lower e xtremity cellulitis Urinary Catheter Management: Roy: Cath Placed During This Visit: yes Reason for Continuing Indwelling Catheter: Accurate Measurement of Urinary Output in Critically Ill Patients Urinary Catheter Date of Insertion: 02/11/24 Urinary Catheter Time of Insertion: 10:59 Sepsis: Is patient septic: Yes Focused sepsis exam performed: Yes F ocused sepsis exam: DP PT pulses barely palpable, cap refill greater than 2 seconds, mottling bilateral lower extremities Date exam was performed: 02/12/24 Time exam was performed: 09:00 Data 02/12/24 02:41 02/12/24 02:41 Micro: Microbiology 02/12/24 09:45 Gram Stain - Final Sputum - Endotracheal Tube Aspirate 02/11/24 11:00 Blood Culture - Preliminary Blood NEGATIVE TO DATE 02/11/24 11:02 Blood Culture - Preliminary Blood A&P Assessment and plan (1) Acute encephalopathy: (2) Hypertension: Qualifiers: Hypertension type: essential hypertension Qualified Code(s): I10 - Essential (primary) hypertension (3) CAD (coronary artery disease): Qualifiers: Coronary Disease-Associated Artery/Lesion type: [place] artery [place] vs. transplanted heart: [place] heart Associated angina: without angina Qualified Code(s): I25.10 - Atherosclerotic heart disease of [place] coronary artery without angina pectoris (4) Atrial fibrillation: Qualifiers: Atrial fibrillation type: persistent (not longstanding) Qualified Code(s): I48.19 - Other persistent atrial fibrillation (5) Hyperlipidemia: Qualifiers: Hyperlipidemia type: mixed hyperlipidemia Qualified Code(s): E78.2 - Mixed hyperlipidemia (6) Sepsis: (7) Cellulitis: (8) Rhabdomyolysis: (9) SOB (shortness of breath): (10) Pneumonia: (11) NSTEMI (non-ST elevated myocardial infarction): (12) Acute kidney injury: (13) CHF exacerbation: (14) Transaminitis: (15) Hyperbilirubinemia: (16) Physical deconditioning: (17) Falls: (18) UTI (urinary tract infection): (19) Acute hypoxemic respiratory failure: (20) Septic shock: Plan Acute encephalopathy Is likely multifactorial, from pneumonia, UTI, cellulitis, sepsis # Plan ? Keep n.p.o. # Neurochecks Aspiration precautions CT head no acute findings Acute hypoxic respiratory failure -Requiring intubation, mechanical ventilation 02/12/2024 ? Likely secondary to fluid overload, BNP over 20,000, CHF exacerbation,4+ pitting edema ? pneumonia ? Plan -Intubated -Continue Precedex, fentanyl, propofol for sedation ? Minimize FiO2, minutes tidal volume, Daily spontaneous breathing trials ? Currently on Levophed Is currently on vasopressin ? Continue vancomycin -continue Zosyn -Add azithromycin ? 2 doses of Lasix today -Monitor urine output -Diminished urine output, patient might require dialysis Septic shock ? Secondary to UTI, pneumonia ? Continue pressors ? Maintain MAP in the 65 AFSHIN -Secondary to sepsis, septic shock -Currently not requiring Levophed, vasopressin Monitor urine output Monitor creatinine Monitor response for Lasix Patient might require dialysis in the near future, patient's is agreeable for temporary dialysis Pneumonia Sputum cultures ? Blood cultures UTI ? Urine culture ? Zosyn Bilateral extremity cellulitis ? Antibiotics as above CHF exacerbation ? BNP over 20,000, bilateral extremity edema, acute hypoxia ? Currently on Lasix ? Venous ultrasound negative for DVT Sepsis ? Sources of infection is UTI, pneumonia, cellulitis NSTEMI Serial EKGs consult troponins, telemetry monitoring ? Cardiac echo Hematuria ? Resolving Transaminitis with hyperbilirubinemia ? CT scan patient status post cholecystectomy ? No intra extrahepatic biliary dilatation ? Monitor closely ? Acute hep panel, HIV, iron studies CODE STATUS spoke to at bedside, patient is a DNR, agreeable for intubation, agreeable for dialysis ? SCDs for DVT prophylaxis, heparin drip Attestations 2 Medical Necessity Statement*: Patient requires hospitalization, for acute hypoxic respiratory failure secondary to pneumonia, fluid overload, CHF, acute encephalopathy, UTI, sepsis, septic shock, acute renal failure, NSTEMI Coding Level of Care Code Critical Care >/= 30 minutes Critical care time (in minutes): 60 Diagnoses Acute encephalopathy G93.40 Essential hypertension I10 Hypertension type: essential hypertension Coronary artery disease involving [place] coronary artery of [place] heart without angina pectoris I25.10 Coronary Disease-Associated Artery/Lesion type: [place] artery [place] vs. transplanted heart: [place] heart Associated angina: without angina Persistent atrial fibrillation I48.19 Atrial fibrillation type: persistent (not longstanding) Mixed hyperlipidemia E78.2 Hyperlipidemia type: mixed hyperlipidemia Sepsis A41.9 Cellulitis L03.90 Rhabdomyolysis M62.82 SOB (shortness of breath) R06.02 Pneumonia J18.9 NSTEMI (non-ST elevated myocardial infarction) I21.4 Acute kidney injury N17.9 CHF exacerbation I50.9 Transaminitis R74.01 Hyperbilirubinemia E80.6 Physical deconditioning R53.81 Falls R29.6 UTI (urinary tract infection) N39.0 Acute hypoxemic respiratory failure J96.01 Septic shock A41.9; R65.21
[2024-02-12 17:45] LABS: Partial Thromboplastin Time 110.4 SECONDS (23.9-36.7)
[2024-02-12] MEDS: azithromycin 500 MG in sodium chloride 0.9% 250 ML 250 MG IV (17:59)
--- NOTE | 2024-02-12 18:24 | PC.NURSE ---
Medications ordered, but not administered: Dr. Israel gave verbal order to keep propofol as a last resort and Dopamine only if needed .
[2024-02-12] MEDS: norepinephrine 4 MG/250 ML BAG 60 MG IV (20:22)
[2024-02-12] MEDS: atorvastatin 40 mg Tablet PO (20:22)
[2024-02-12] MEDS: fentaNYL 2,500 MCG/250 ML BAG 17.5 MCG IV (22:14)
[2024-02-13] VITALS (234 sets, daily range): BP systolic 78–145; BP diastolic 34–80; PULSE 57–225; RESP 15–19; TEMP 37.3–37.9; O2SAT 86–98
[2024-02-13 00:29] LABS: Partial Thromboplastin Time 92.5 SECONDS (23.9-36.7)
[2024-02-13] MEDS: norepinephrine 4 MG/250 ML BAG 52.5 MG IV (00:48)
[2024-02-13] MEDS: pantoprazole 40 mg SDV IVP ×2 (03:06→15:33)
[2024-02-13] MEDS: dexmedeTOMIDine 0.9 % NaCL 400 MCG/100 ML PREMIX 20.83 MCG IV (03:06)
[2024-02-13 04:17] LABS: ABG PCO2 33.5 mmHg (35-45); ABG PH Result 7.39 (7.35-7.45); Arterial Blood Gas Hematocrit 38.3 % (42-52); Base Excess ABG -3.8 mmol/L (-2.0-2.0); Blood Gas Allen Test Pos; Blood Gas Sample Site Radial, right; Blood Gas Sample Type Arterial; HCO3 ABG 20.4 mmol/L (22-26); Oxygen Device VENT; PO2 ABG 76.2 mmHg (80.0-100.0); PO2 FiO2 Ratio Arterial Blood 211
[2024-02-13] MEDS: piperacillin-tazobactam 3.375 GM in sodium chloride 0.9% (plus) 50 ML IV ×3 (04:32→20:30)
[2024-02-13 04:35] LABS: Hematocrit 34.6 % (37-53); Lymphocytes # 1.2 10^3/uL (0.8-4.8); Lymphocytes % 3.5 %; Mean Corpuscular HGB Conc 34.4 g/dL (30-55); Mean Corpuscular Hemoglobin 33.2 pg (27-33); Mean Corpuscular Volume 96.6 fl (82-101); Mean Platelet Volume 9.9 fL (7.4-10.4); Monocytes # 0.6 10^3/uL (0.2-0.9); Monocytes % 1.8 %; Neutrophils # 30.47 10^3/uL (1.8-7.7); Neutrophils % 90.8 %; Nucleated Red Blood Cells % 0 %; Platelet Count 180 10^3/cmm (157-399); Red Blood Count 3.58 10^6/uL (3.85-5.65)
[2024-02-13 04:44] LABS: INR 1.72 (0.8-1.2)
[2024-02-13 04:52] LABS: Lactate (Lactic Acid level) 2.2 mmol/L (0.5-2.2)
[2024-02-13 05:39] LABS: White Blood Count 33.58 10^3/uL (3.29-11.43)
[2024-02-13] MEDS: norepinephrine 4 MG/250 ML BAG 37.5 MG IV (05:50)
[2024-02-13] MEDS: heparin drip 25,000 UNIT/500 ML PREMIX 20 UNIT IV (05:50)
[2024-02-13] MEDS: LORazepam 2 mg/mL INJ 1 mL IVP (06:22)
--- NOTE | 2024-02-13 06:30 | PC.NURSE ---
Following turning at 0605 patient began having uniform jerking to upper extremeties and torso and rhythmic twitching to feet. Continued for 2 min, contacted Dr. Roberts who came and assessed patient. New order received for Lorazepam 2 mg IVP. Twitching continued approx 12-14 min before subsiding.
--- NOTE | 2024-02-13 06:39 | P.PN_ITS ---
Subjective 2 Subjective: events noted Medications: Reviewed: Yes Vitals/I&O/Wt Last Vital Signs Temp 100.3 F H 02/13/24 04:00 Pulse 88 02/13/24 06:00 Resp 19 H 02/13/24 04:00 BP 94/57 02/13/24 04:20 Pulse Ox 94 02/13/24 04:20 O2 Del Method Mechanical Ventilation 02/12/24 20:12 O2 Flow Rate 2 02/12/24 07:59 FiO2 36 02/13/24 04:00 02/12/24 02/12/24 02/13/24 14:59 22:59 06:59 Intake Total 654.031 / 527.785 6240.490 / 2116.521 960.694 / 3077.215 Output Total 100 / 100 50 / 150 Balance 654.031 / 870.191 2783.490 / 2016.521 910.694 / 2927.215 Weight last 48 hrs Weight 104.145 kg Weight 116.687 kg Weight 82.554 kg Physical Exam 2 Narrative: INTUBATED , SEDATED ON PRESSORS Urinary Catheter Management: Roy: Cath Placed During This Visit: yes Reason for Continuing Indwelling Catheter: Accurate Measurement of Urinary Output in Critically Ill Patients Urinary Catheter Date of Insertion: 02/11/24 Urinary Catheter Time of Insertion: 10:59 Data 02/14/24 04:17 02/14/24 04:17 Micro: Microbiology 02/12/24 09:45 Gram Stain - Final Sputum - Endotracheal Tube Aspirate 02/11/24 11:00 Blood Culture - Preliminary Blood NEGATIVE TO DATE 02/11/24 11:02 Blood Culture - Preliminary Blood A&P Assessment and plan (1) Acute kidney injury: Plan 1. Acute kidney injury: Baseline creatinine was normal in December 2023. Now has an AFSHIN with a creatinine of 1.7-likely ATN in the setting of acute infection, patient also received IV contrast with CT-renal function may get further worse. -Currently on 2 pressors, anuric , awaiting BMP, CRRT would be appropriate but not avialable , if renal fxn continues to get worse ,will attempt HD with low BFR -Avoid further IV contrast exposure and nephrotoxic drugs. 2. Septic shock in the setting of pneumonia and possible UTI, on pressors 3. Acute on chronic respiratory failure: Multifactorial -due to pneumonia and possible CHF 4. Metabolic acidosis: Mild, likely from lactic acidosis, monitor 5. Hyponatremia, mild monitor Patient evaluated using audiovisual cart. Time spent 40 min Attestations 2 Medical Necessity Statement*: per piotr Coding Level of Care Code Acute Code for [facility] Diagnoses Acute kidney injury N17.9
--- NOTE | 2024-02-13 07:00 | XR_ITS ---
WS: [id number] PORTABLE CHEST HISTORY: sob COMPARISON: 02/12/2024 Patient is intubated. Endotracheal tube ends just above the tony. Nasogastric tube is also present but incompletely included. Tip does extend below the GE junction. Right-sided PICC line in good posit ion. Lung volumes are decreased. Partial obscuration of the LEFT costophrenic angle. Mild fluid overload h as slightly improved since the prior exam. Small persistent LEFT pleural effusion. Cardiac size: Normal. Mediastinum/Aorta: Mild atherosclerosis aorta. No osseous abnormality seen. XR/XR chest 1V portable [id number] IMPRESSION: 1. Nasogastric tube ends just above the tony. 2. RIGHT PICC line and NG tube in good position. 3. Low lung volumes persist with slight improvement in pulmonary edema. 4. Small LEFT pleural effusion.
[2024-02-13 07:27] LABS: Partial Thromboplastin Time 118.9 SECONDS (23.9-36.7)
--- NOTE | 2024-02-13 07:35 | PC.PHAR ---
Addendum entered by Gabi Rubalcava 02/13/24 08:51: REFAXED 8:51AM Original Note: PT IS [facility] L[facility] 02/13/24 7:l35AM
[2024-02-13] MEDS: dexmedeTOMIDine 0.9 % NaCL 400 MCG/100 ML PREMIX 15.62 MCG IV ×2 (07:58→13:49)
[2024-02-13] MEDS: ipratropium-albuterol 3 mL Neb INHALATION ×4 (08:04→19:45)
[2024-02-13 09:07] LABS: Alanine Aminotransferase 143 U/L (0-41); Albumin Level 1.7 g/dL (3.5-5.2); Alkaline Phosphatase 352 U/L (40-130); Anion Gap 19.7 (5-19); Aspartate Amino Transferase 394 U/L (0-40); Calcium 7.7 mg/dL (8.5-10.5); Carbon Dioxide 17 mmol/L (22-29); Chloride 98 mmol/L (98-107); Creatinine Clr Calc Pharmacy 28.1659; Globulin 3.5 g/dL (1.3-4.6); Glucose 141 mg/dL (65-115); Magnesium 2.4 mg/dL (1.7-2.3); Osmolality Calculated 300 mOsm/kg (285-295); Phosphorus 5.4 mg/dL (2.5-4.5); Potassium 4.7 mmol/L (3.5-5.1); Sodium 130 mmol/L (136-145); Total Bilirubin 2.9 mg/dL (0.15-1.2); Total Protein 5.2 g/dL (6.6-8.7)
[2024-02-13 09:09] LABS: Blood Urea Nitrogen 89 mg/dL (8-23); Creatine Phosphokinase 1104 U/L (39-308)
[2024-02-13 09:12] LABS: NT Pro B Type Natriuretic Pept 41750 pg/mL (0-450)
[2024-02-13] MEDS: clopidogrel 75 mg Tablet PO (09:17)
[2024-02-13 09:20] LABS: C Reactive Protein 449.8 mg/L (0.0-4.9)
[2024-02-13 09:30] LABS: Procalcitonin 33.89 ng/mL (0-0.5)
[2024-02-13] MEDS: midazolam 1 mg/mL INJ 2 mL 2 MG IVP ×2 (09:48→15:33)
--- NOTE | 2024-02-13 09:59 | PC.NURSE ---
Patient and daughter at bedside, updated on condition and current plan of care.
[2024-02-13] MEDS: norepinephrine 4 MG/250 ML BAG 67.5 MG IV ×2 (10:22→13:49)
--- NOTE | 2024-02-13 10:29 | PC.SOCIAL ---
IMM Updated Pg. 2 of IMM Updated. Copy provided to patient's .
[2024-02-13] MEDS: fentaNYL 2,500 MCG/250 ML BAG 20 MCG IV (10:44)
--- NOTE | 2024-02-13 13:28 | PC.NURSE ---
Dr. Israel verbal order to stop heparin drip pending temporary dialysis line placement. See MAR for pause at 1104.
[2024-02-13] MEDS: vancomycin 1,250 MG/250 ML PIGGYBACK 250 MG IV (13:49)
[2024-02-13 15:03] LABS: Partial Thromboplastin Time 44.6 SECONDS (23.9-36.7)
[2024-02-13 15:07] LABS: Blood Urea Nitrogen 79 mg/dL (8-23); Calcium 6.1 mg/dL (8.5-10.5); Carbon Dioxide 13 mmol/L (22-29); Chloride 92 mmol/L (98-107); Glucose 131 mg/dL (65-115); Osmolality Calculated 281 mOsm/kg (285-295); Sodium 123 mmol/L (136-145)
[2024-02-13 15:09] LABS: Anion Gap 22.7 (5-19); Potassium 4.7 mmol/L (3.5-5.1)
--- NOTE | 2024-02-13 15:35 | P.PN_ITS ---
Subjective 2 Subjective: - Patient was seen this morning, ? Intubated, sedated on mechanical ventilation ? There was concerns for seizure episode this morning, I have not noticed any seizure-like activity, ? Currently remains on fentanyl, Precedex for sedation Added on Versed for as needed agitation, seizure-like episodes ? Urine output remains lackluster ? Is currently on 2 pressors Levophed, vasopressin ? Is on 35% FiO2 ? Had a detailed discussion with patient's at bedside, patient's status remains critical, prognosis guarded, due to acute renal failure, lack of urine output, highly concerning for sepsis induced nephropathy, and with his developing fluid overload this is going to be an issue We discussed risk and benefits dialysis, she voiced understanding, all question answered, agreed to proceed with temporary dialysis catheter and dialysis ? We discussed that likely placed temporary dialysis catheter, will see how he does by this afternoon and decide Vitals/I&O/Wt Last Vital Signs Temp 99.1 F 02/13/24 12:20 Pulse 75 02/13/24 14:00 Resp 19 H 02/13/24 14:16 BP 114/59 02/13/24 12:25 Pulse Ox 95 02/13/24 14:16 O2 Del Method Mechanical Ventilation 02/13/24 12:25 O2 Flow Rate 2 02/12/24 07:59 FiO2 35 02/13/24 14:16 02/13/24 02/13/24 02/13/24 06:59 14:59 22:59 Intake Total 960.694 / 3077.215 1046.547 / 1046.547 Output Total 50 / 150 50 / 50 Balance 910.694 / 2927.215 996.547 / 996.547 Weight last 48 hrs Weight 106.557 kg Weight 104.145 kg Physical Exam 2 Const: COMMON NORMALS: no acute distress Resp: COMMON NORMALS: normal respiratory effort, No retractions, No use of accessory muscles and clear to auscultation bilaterally AUSCULTATION: clear to auscultation bilaterally Cardio: COMMON NORMALS: regular rate, regular rhythm, S1 normal heart sound present and S2 normal heart sound present RATE: regular rate RHYTHM: r egular rhythm HEART SOUNDS: S1 normal heart sound present and S2 normal heart sound present GI: COMMON NORMALS: Normal to inspection, nondistended, normoactive bowel sounds present, Soft to palpation and non-tender PALPATION: Yes Soft to palpation Extremity: COMMON NORMALS: no pedal edema Urinary Catheter Management: Roy: Cath Placed During This Visit: yes Reason for Continuing Indwelling Catheter: Accurate Measurement of Urinary Output in Critically Ill Patients Urinary Catheter Date of Insertion: 02/11/24 Urinary Catheter Time of Insertion: 10:59 Data 02/13/24 03:15 02/13/24 14:11 Micro: Microbiology 02/11/24 11:00 Blood Culture - Preliminary Blood Group g streptococcus 02/11/24 11:02 Blood Culture - Preliminary Blood Group g streptococcus 02/12/24 09:45 Gram Stain - Final Sputum - Endotracheal Tube Aspirate Sputum Culture - Preliminary Gram Negative Rods A&P Assessment and plan (1) Acute encephalopathy: (2) Hypertension: Qualifiers: Hypertension type: essential hypertension Qualified Code(s): I10 - Essential (primary) hypertension (3) CAD (coronary artery disease): Qualifiers: Coronary Disease-Associated Artery/Lesion type: iliamna artery [place] vs. transplanted heart: iliamna heart Associated angina: without angina Qualified Code(s): I25.10 - Atherosclerotic heart disease of [place] coronary artery without angina pectoris (4) Atrial fibrillation: Qualifiers: Atrial fibrillation type: persistent (not longstanding) Qualified Code(s): I48.19 - Other persistent atrial fibrillation (5) Hyperlipidemia: Qualifiers: Hyperlipidemia type: mixed hyperlipidemia Qualified Code(s): E78.2 - Mixed hyperlipidemia (6) Sepsis: (7) Cellulitis: (8) Rhabdomyolysis: (9) SOB (shortness of breath): (10) Pneumonia: (11) NSTEMI (non-ST elevated myocardial infarction): (12) Acute kidney injury: (13) CHF exacerbation: (14) Transaminitis: (15) Hyperbilirubinemia: (16) Physical deconditioning: (17) Falls: (18) UTI (urinary tract infection): (19) Acute hypoxemic respiratory failure: (20) Septic shock: (21) Shock liver: (22) Group G streptococcal infection: Plan Acute encephalopathy Is likely multifactorial, from pneumonia, UTI, cellulitis, sepsis # Plan ? Keep n.p.o. # Neurochecks Aspiration precautions CT head no acute findings Group G strep bacteremia -On Zosyn -repeat blood culutres Acute hypoxic respiratory failure -Requiring intubation, mechanical ventilation 02/12/2024 ? Likely secondary to fluid overload, BNP over 20,000, CHF exacerbation,4+ pitting edema ? pneumonia ? Plan -Intubated -Continue Precedex, fentanyl, propofol for sedation ? Minimize FiO2, minutes tidal volume, Daily spontaneous breathing trials ? Currently on Levophed Is currently on vasopressin ? Continue vancomycin -continue Zosyn -Add azithromycin -Monitor urine output -Diminished urine output, patient might require dialysis Septic shock ? Secondary to UTI, pneumonia ? Continue pressors ? Maintain MAP in the 65 AFSHIN -Secondary to sepsis, septic shock -Currently not requiring Levophed, vasopressin Monitor urine output Monitor creatinine is agreeable for temporary dialysis Shock liver -secondary to sepsis Pneumonia Sputum cultures ? Blood cultures UTI ? Urine culture ? Zosyn Bilateral extremity cellulitis ? Antibiotics as above CHF exacerbation ? BNP over 20,000, bilateral extremity edema, acute hypoxia ? No response to Lasix, will likely not require dialysis ? Venous ultrasound negative for DVT Sepsis ? Sources of infection is UTI, pneumonia, cellulitis NSTEMI Serial EKGs consult troponins, telemetry monitoring ? Cardiac echo Hematuria ? Resolving Transaminitis with hyperbilirubinemia ? CT scan patient status post cholecystectomy ? No intra extrahepatic biliary dilatation ? Monitor closely ? Acute hep panel, HIV, iron studies CODE STATUS spoke to at bedside, patient is a DNR, agreeable for intubation, agreeable for dialysis ? SCDs for DVT prophylaxis, heparin drip spoke to patient , spoke to general surgery about temporary dialysis catheter placement, spoke to nephrology about dialysis Attestations 2 Medical Necessity Statement*: Patient requires hospitalization for acute encephalopathy, acute respiratory failure, septic shock, AFSHIN, shock liver, pneumonia, UTI, group G strep bacteremia, UTI, bilateral extremity cellulitis, CHF Coding Level of Care Code Critical Care >/= 30 minutes Critical care time (in minutes): 45 The high probability of a clinically significant, sudden or life threatening deterioration, as referenced in this documentation, required my full and direct attention, intervention and personal management. The critical care time shown is in addition to time spent performing any reported separately billable procedures and includes the following: [x] Data and vital sign review and interpretation [x ] Patient assessment, examination and intervention [x] Medication orders and management [x] Patient/Family updates as able [x] Care Coordination and Documentation. Diagnoses Acute encephalopathy G93.40 Essential hypertension I10 Hypertension type: essential hypertension Coronary artery disease involving iliamna coronary artery of [place] heart without angina pectoris I25.10 Coronary Disease-Associated Artery/Lesion type: ili[place] artery [place] vs. transplanted heart: ili[place] heart Associated angina: without angina Persistent atrial fibrillation I48.19 Atrial fibrillation type: persistent (not longstanding) Mixed hyperlipidemia E78.2 Hyperlipidemia type: mixed hyperlipidemia Sepsis A41.9 Cellulitis L03.90 Rhabdomyolysis M62.82 SOB (shortness of breath) R06.02 Pneumonia J18.9 NSTEMI (non-ST elevated myocardial infarction) I21.4 Acute kidney injury N17.9 CHF exacerbation I50.9 Transaminitis R74.01 Hyperbilirubinemia E80.6 Physical deconditioning R53.81 Falls R29.6 UTI (urinary tract infection) N39.0 Acute hypoxemic respiratory failure J96.01 Septic shock A41.9; R65.21 Shock liver K72.00 Group G streptococcal infection B95.4
--- NOTE | 2024-02-13 16:15 | P.CONIM_ITS ---
Providers/Reason For Consult 2 Consulting Physician/Specialty*: Dr. Godwin Minor, DO/General surgery Reason for Consult*: Temporary hemodialysis catheter placement Attending Physician: Brian Israel MD History of Present Illness History of Present Illness Sridhar Mercado is a 78 year old male Patient is a 78-year-old male with multiple medical problems including A-fib, coronary artery disease, hypertension,, dyslipidemia presented to the emergency department on 02/11/2024 due to generalized weakness fatigue and was noted to have altered mental status and encephalopathy. Family reported that patient had suffered 2 falls at home and has progressively declined in the last few days. While in the hospital he was also found to have pneumonia and a UTI. He only made 100 cc of urine in 1 day and nephrology requested a temporary hemodialysis catheter to be placed. HPI and review of systems are limited secondary to patient's intubated status Review of Systems 2 General: Reports: ROS unobtainable due to endotracheal tube Medications/Allergies Home Medications Medication Instructions Recorded Confirmed Last Taken Type allopurinol 300 mg tablet 300 mg PO QDAY 08/23/19 02/13/24 Unknown History atenolol 50 mg tablet 25 mg PO QDAY 08/23/19 02/13/24 Unknown History clopidogrel 75 mg tablet 75 mg PO QDAY 08/23/19 02/13/24 Unknown History multivitamin 1 tab PO QAM 08/23/19 02/13/24 Unknown History lisinopril 40 mg tablet 40 mg PO QDAY 08/19/20 02/13/24 Unknown History isosorbide mononitrate 30 mg See Rx Instructions .Route 09/23/23 02/13/24 Unknown Rx tablet,extended release 24 hr .COMPLEX #90 tabs amlodipine 5 mg tablet 10 mg PO DAILY 01/16/24 02/13/24 Unknown History furosemide 20 mg tablet (Lasix) 20 mg PO DAILY #30 tabs 01/16/24 02/13/24 Unknown Rx apixaban 5 mg tablet (Eliquis) 2.5 mg PO BID 02/13/24 02/13/24 Unknown History aspirin 81 mg tablet,delayed 81 mg PO DAILY 02/13/24 02/13/24 Unknown History release fluorouracil 5 % topical cream 1 applic topical BID 02/13/24 02/13/24 Unknown History psyllium husk (aspartame) 3 See Rx Instructions .Route .COMPLEX 02/13/24 02/13/24 Unknown History gram/5.8 gram oral powder (Reguloid (aspartame)) rosuvastatin 20 mg tablet 10 mg PO QPM 02/13/24 02/13/24 Unknown History triamterene 75 0.5 tab PO QAM 02/13/24 02/13/24 Unknown History mg-hydrochlorothiazide 50 mg tablet vitamin B complex 1 tab PO DAILY 02/13/24 02/13/24 Unknown History Allergies Allergy/AdvReac Type Severity Reaction Status Date / Time No Known Allergies Allergy Verified 12/14/23 11:11 Current Medications Generic Name Dose Route Start Last Admin Trade Name Freq PRN Reason Stop Dose Admin Atorvastatin Calcium 40 mg 02/11/24 21:00 02/13/24 20:15 Atorvastatin 40 Mg Tablet PO 40 mg BEDTIME DALE Administration Clopidogrel Bisulfate 75 mg 02/11/24 14:30 02/14/24 07:43 Clopidogrel 75 Mg Tablet PO 75 mg DAILY DALE Administration Piperacillin Sod/Tazobactam 50 mls @ 12.5 mls/hr 02/11/24 21:30 02/14/24 10:10 Sod 3.375 gm/ Sodium Chloride IV Infused Q8H DALE Infusion Vancomycin/PEG/NADA/Lysine/Water 1,250 mg in 250 mls @ 250 mls/hr 02/12/24 13:00 02/14/24 10:10 Vancocin IV Infused Q24H DALE Infusion Heparin Sodium/Sodium Chloride 25,000 unit in 500 mls @ 0 mls/hr 02/12/24 08:45 02/14/24 10:10 Heparin Drip IV 0 unit/kg/hr .Q0M DALE 0 mls/hr Titration Protocol Per Protocol Norepinephrine Bitartrate 4 mg in 250 mls @ 0 mls/hr 02/12/24 08:45 02/14/24 10:10 Levophed IV 0 mcg/min .Q0M DALE 0 mls/hr Titration Protocol Per Protocol Dexmedetomidine/Sodium Chloride 400 mcg in 100 mls @ 0 mls/hr 02/12/24 09:30 02/14/24 10:10 Precedex IV 0 mcg/kg/hr .Q0M DALE 0 mls/hr Titration Protocol Per Protocol Fentanyl 2,500 mcg in 250 mls @ 0 mls/hr 02/12/24 09:45 02/14/24 10:10 Sublimaze IV 0 mcg/hr .Q0M DALE 0 mls/hr Titration Protocol Per Protocol Vasopressin 40 unit in 100 mls @ 0 mls/hr 02/12/24 11:00 02/14/24 10:10 Vasostrict IV 0 unit/min .Q0M DALE 0 mls/hr Titration Protocol Per Protocol Azithromycin 500 mg/ Sodium 250 mls @ 250 mls/hr 02/12/24 17:45 02/14/24 10:10 Chloride IV Infused Q24H DALE Infusion Protocol Amiodarone HCl/Dextrose 360 mg in 200 mls @ 0 mls/hr 02/13/24 23:00 02/14/24 10:10 Nexterone IV 0 mg/min .Q0M DALE 0 mls/hr Titration Protocol Per Protocol Lanolin 1 applic 02/12/24 12:33 02/13/24 22:30 Lanolin Oint 7 Gm TOPICAL 1 applic PRN PRN Administration DRYNESS Midazolam HCl 2 mg 02/13/24 09:00 02/14/24 08:23 Midazolam 1 Mg/Ml Inj 2 Ml IVP 2 mg Q4H PRN Administration seizure activity/ agitation Morphine Sulfate 2 mg 02/11/24 14:25 02/14/24 10:16 Morphine 4 Mg/Ml Sdv 1 Ml IVP 2 mg Q4H PRN Administration SEVERE PAIN Pantoprazole Sodium 40 mg 02/11/24 14:25 02/14/24 04:32 Pantoprazole 40 Mg Sdv IVP 40 mg Q12H DALE Administration PFSH Acute 2 PFSH: Medical History Atrial fibrillation Carotid stenosis Gout CAD (coronary artery disease) Pt had PCI in December of 2010 three stents Hyperlipidemia Hypertension Ventricular arrhythmia Surgical History H/O left wrist surgery History of mandibular surgery History of appendectomy S/P cholecystectomy Previous back surgery History of total hip replacement Family History Father CAD (coronary artery disease) Mother CAD (coronary artery disease) Diabetes Brother CAD (coronary artery disease) Diabetes Sister CAD (coronary artery disease) Cancer Diabetes Other Hypertension Denies family history of Clotting disorder Dementia Chronic kidney disease (CKD) Suicide Anesthesia complication Bleeding disorder Lung disease Stroke Social History Smoking and tobacco/nicotine status: former use of tobacco/nicotine Alcohol intake: never Substance/Drug Use: never Vitals/I&O/Wt Last Vital Signs Temp 98.5 F 02/14/24 04:36 Pulse 81 02/14/24 08:00 Resp 14 02/14/24 10:16 BP 113/45 02/14/24 08:00 Pulse Ox 97 02/14/24 09:30 O2 Del Method Mechanical Ventilation 02/14/24 07:40 O2 Flow Rate 2 02/12/24 07:59 FiO2 60 02/14/24 09:30 02/13/24 02/14/24 02/14/24 22:59 06:59 14:59 Intake Total 1257.373 / 2303.920 1128.403 / 3432.323 679.291 / 679.291 Output Total 50 / 100 Balance 1257.373 / 2253.920 1078.403 / 3332.323 679.291 / 679.291 Weight last 48 hrs Weight 250 lb 12.8 oz Weight 234 lb 14.684 oz Physical Exam 2 Narrative: General : Intubated/sedated Head : Normal cephalic, a-traumatic. Ears : Pinnae and external canal are normal. Hearing is normal. Eyes : PERRLA, Sclera and injection are normal. No conjunctival discharge. Nose : Mucous membranes are without erythema. Throat : buccal mucosa is normal, gums are without significant recession or hypertrophy. Lungs : Equal chest rise bilaterally, no use of accessory muscles, trachea is midline. Cor : Rate and rhythm are normal. Abdomen : Soft, ND, NT, no g/r/m Extremities : No edema, no cyanosis or clubbing, dorsalis pedis pulses are present bilaterally, non-tender to palpation of calves. Upper extremities are normal bilaterally. Back : non-tender to palpation, no CVA tenderness. Neuro : CN II - XII intact, Upper and lower extremities have equal and full strength general : Patient is well developed , no acute distress, oriented x3 Head : Normal cephalic, a-traumatic. Ears : Pinnae and external canal are normal. Hearing is normal. Eyes : PERRLA, Sclera and injection are normal. No conjunctival discharge. Nose : Mucous membranes are without erythema. Throat : buccal mucosa is normal, gums are without significant recession or hypertrophy. Lungs : Equal chest rise bilaterally, no use of accessory muscles, trachea is midline. Cor : Rate and rhythm are normal. Abdomen : Soft, ND, NT, no g/r/m Extremities : No edema, no cyanosis or clubbing, dorsalis pedis pulses are present bilaterally, non-tender to palpation of calves. Upper extremities are normal bilaterally. Back : non-tender to palpation, no CVA tenderness. Urinary Catheter Management: Roy: Cath Placed During This Visit: yes Reason for Continuing Indwelling Catheter: Accurate Measurement of Urinary Output in Critically Ill Patients Urinary Catheter Date of Insertion: 02/11/24 Urinary Catheter Time of Insertion: 10:59 Data 02/14/24 04:17 02/14/24 04:17 Micro: Microbiology 02/11/24 11:00 Blood Culture - Final Blood Group g streptococcus 02/11/24 11:02 Blood Culture - Final Blood Group g streptococcus 02/12/24 09:45 Gram Stain - Final Sputum - Endotracheal Tube Aspirate Sputum Culture - Final Serratia marcescens Klebsiella oxytoca A&P Assessment and plan (1) Acute kidney injury: Plan Temporary hemodialysis catheter insertion The risks and benefits of the procedure, including but not limited to, bleeding, infection, infection requiring Mediport removal antibiotic therapy and repeat surgery, damage to surrounding structures, scar, numbness, pain, were explained to the patient's . She is understanding of the risks and wishes to proceed. Coding Level of Care Code 07029 Diagnoses Acute kidney injury N17.9
--- NOTE | 2024-02-13 16:34 | PC.NURSE ---
Verbal order from Dr. Israel to resume heparin drip after temp dialysis line placement. See SEP.
[2024-02-13] MEDS: azithromycin 500 MG in sodium chloride 0.9% 250 ML 250 MG IV (17:13)
[2024-02-13] MEDS: norepinephrine 4 MG/250 ML BAG 75 MG IV ×3 (17:13→23:45)
--- NOTE | 2024-02-13 18:19 | P.PCN_ITS ---
Procedure Note: Procedure: Preoperative diagnosis: Acute renal failure requiring emergent dialysis Postoperative diagnosis: Same Procedure: Placement of Mahurkar catheter in the right femoral vein Surgeon: Dr. Godwin Minor, DO Anesthesia: Local Description of procedure: The patient's right groin was prepped and draped in a sterile manner. 5 mL of 1% lidocaine was infiltrated at the site of planned entry, an introducer needle was used to access the right femoral vein. Guidewire was passed through the introducer needle and the introducer needle was removed. Serial dilators were passed over the guidewire after the skin incision was extended using 11 blade and Mahurkar catheter was then passed over the kiana dewire and the guidewire was removed. The catheter was sutured to the skin using 2-0 Ethilon suture. Sterile dressings were applied. Coding Level of Care Code Acute Code for Chg Fwd
[2024-02-13] MEDS: atorvastatin 40 mg Tablet PO (20:15)
[2024-02-13] MEDS: dexmedeTOMIDine 0.9 % NaCL 400 MCG/100 ML PREMIX 13.02 MCG IV (20:15)
--- NOTE | 2024-02-13 21:37 | PC.NURSE ---
MTS: Referral #[id number] Update given to Augustine @[phone], he reports they will send a sales training representative out tomorrow, the .
--- NOTE | 2024-02-13 22:24 | PC.NURSE ---
Landy: 55 beat run of Landy, Dr. Oh called @5918, no new orders at this time. Strip placed in paper chart.
[2024-02-13] MEDS: lanolin oint 7 gm 1 APPLIC TOPICAL (22:30)
--- NOTE | 2024-02-13 22:37 | PC.NURSE ---
Family Update: Attempted to call @9319 to update on run of Harish, call went to voicemail, message left requesting her to give us a call back.
[2024-02-13] MEDS: amiodarone 50 mg/mL SDV 3 mL 150 MG IVP (22:55)
[2024-02-13] MEDS: metoprolol tartrate 1 mg/1 mL SDV 5 mL 5 MG IVP (23:00)
--- NOTE | 2024-02-13 23:25 | PC.NURSE ---
V.Tach 20min: Pt sustained V.tach for 20minites. Dr. Oh called and shortly at bedside. Multiple attempts to reach - all calls went to voicemail. Verbal order for 150 amio and 5 metoprolol- see 'SEP for times administered. Zosyn, Heparin, Fentanyl, Precedex stopped- Dr. Oh aware.
[2024-02-13] MEDS: metoprolol tartrate 1 mg/1 mL SDV 5 mL 2.5 MG IVP (23:35)
--- NOTE | 2024-02-13 23:36 | PC.NURSE ---
Sustained V.Tach: Notified Dr. Oh @6802 that pt went back into V.Tach and that Vaso is almost at max per protocol. New order for 2.5mg IVP Metoprolol ONCE NOW. Notified Dr. Oh for Dopamine drip on SEP- order to d/c Dopamine.
[2024-02-14] VITALS (42 sets, daily range): BP systolic 98–151; BP diastolic 26–109; PULSE 64–109; RESP 14–27; TEMP 36.9; O2SAT 86–100
--- NOTE | 2024-02-14 00:41 | PC.NURSE ---
Heparin: Contacted Dr. Oh regarding paused Heparin drip- order to restart.
[2024-02-14] MEDS: vasopressin 40 UNIT/100 ML PREMIX 13.5 UNIT IV ×2 (00:56→07:42)
[2024-02-14 00:59] LABS: Partial Thromboplastin Time 54.6 SECONDS (23.9-36.7)
--- NOTE | 2024-02-14 02:08 | PC.NURSE ---
Turning: Unable to turn pt Q2H, contraindicated per vital signs (irregular HR w/ frequent PVCs and runs of V.tach, low SpO2, low BP), pt is on an air mattress.
[2024-02-14] MEDS: norepinephrine 4 MG/250 ML BAG 75 MG IV ×3 (03:03→09:35)
--- NOTE | 2024-02-14 03:37 | PC.NURSE ---
Unable to reach family: Attempted to call Sully () every 1-2 hours, all phone calls go to voicemail, messages left.
[2024-02-14] MEDS: metoprolol tartrate 1 mg/1 mL SDV 5 mL 2.5 MG IVP (04:09)
--- NOTE | 2024-02-14 04:18 | PC.NURSE ---
V.Tach: 2 min run of V.tach, converted back to A.fib, then back into V.tach. Dr. Oh called @0405, new order for Metoprolol 2.5mg ONCE NOW. V.tach sustained for 9 minutes.
[2024-02-14 04:26] LABS: ABG PCO2 29.9 mmHg (35-45); ABG PH Result 7.34 (7.35-7.45); Arterial Blood Gas Hematocrit 37.5 % (42-52); Base Excess ABG -8.6 mmol/L (-2.0-2.0); Blood Gas Allen Test Pos; Blood Gas Operator Identificat GD; Blood Gas Sample Site Radial, right; Blood Gas Sample Type Arterial; Oxygen Device VENT; PO2 ABG 71.9 mmHg (80.0-100.0); PO2 FiO2 Ratio Arterial Blood 119
[2024-02-14] MEDS: pantoprazole 40 mg SDV IVP (04:32)
[2024-02-14] MEDS: piperacillin-tazobactam 3.375 GM in sodium chloride 0.9% (plus) 50 ML IV (04:32)
[2024-02-14 04:41] LABS: Hematocrit 34.8 % (37-53); Mean Corpuscular HGB Conc 33.6 g/dL (30-55); Mean Corpuscular Hemoglobin 32.8 pg (27-33); Mean Corpuscular Volume 97.5 fl (82-101); Mean Platelet Volume 9.4 fL (7.4-10.4); Platelet Count 237 10^3/cmm (157-399); Red Blood Count 3.57 10^6/uL (3.85-5.65); Red Cell Distribution Width 15.2 % (12.1-15.1); White Blood Count 24.68 10^3/uL (3.29-11.43)
[2024-02-14 05:02] LABS: Alanine Aminotransferase 172 U/L (0-41); Albumin Level 1.8 g/dL (3.5-5.2); Alkaline Phosphatase 399 U/L (40-130); Anion Gap 23.4 (5-19); Aspartate Amino Transferase 460 U/L (0-40); Calcium 7.6 mg/dL (8.5-10.5); Carbon Dioxide 15 mmol/L (22-29); Chloride 92 mmol/L (98-107); Creatinine Clr Calc Pharmacy 22.1913; Globulin 3.7 g/dL (1.3-4.6); Glucose 216 mg/dL (65-115); Magnesium 2.5 mg/dL (1.7-2.3); Osmolality Calculated 297 mOsm/kg (285-295); Phosphorus 6.8 mg/dL (2.5-4.5); Potassium 5.4 mmol/L (3.5-5.1); Sodium 125 mmol/L (136-145); Total Bilirubin 3.5 mg/dL (0.15-1.2); Total Protein 5.5 g/dL (6.6-8.7)
[2024-02-14 05:04] LABS: Lactate (Lactic Acid level) 2.6 mmol/L (0.5-2.2)
[2024-02-14 05:10] LABS: Procalcitonin 35.81 ng/mL (0-0.5)
--- NOTE | 2024-02-14 05:17 | PC.NURSE ---
Bathing: Unable to bath, contraindicated per vital signs, unstable HR/BP.
[2024-02-14 05:30] LABS: Slide Review Slide Review Perform
[2024-02-14 05:31] LABS: Absolute Segmented Neutrophil 19.7 10/cmm (1.6-7.1); Band Neutrophils Absolute 3.7 10^3/cmm (0.0-1.2); Lymphocytes 2 %; Segmented Neutrophils 80 %; Total Cells Counted 100 (0-100)
[2024-02-14 05:32] LABS: Absolute Neutrophil 23.4 10^3/cmm (1.4-6.5); Eosinophils 0 %; Platelet Estimate Normal (Normal)
[2024-02-14 05:36] LABS: NT Pro B Type Natriuretic Pept 51890 pg/mL (0-450)
[2024-02-14 05:41] LABS: Blood Urea Nitrogen 97 mg/dL (8-23)
[2024-02-14 05:57] LABS: C Reactive Protein 362.1 mg/L (0.0-4.9)
[2024-02-14 05:59] LABS: Creatine Phosphokinase 942 U/L (39-308)
--- NOTE | 2024-02-14 06:05 | PC.NURSE ---
Fentanyl: Family at bedside, requesting the Fentanyl be turned back on because they believe the pt is in pain. See MAR for start time/titration.
[2024-02-14] MEDS: ipratropium-albuterol 3 mL Neb INHALATION (07:38)
[2024-02-14] MEDS: clopidogrel 75 mg Tablet PO (07:43)
[2024-02-14] MEDS: fentaNYL 2,500 MCG/250 ML BAG IV (07:43)
[2024-02-14 07:47] LABS: Partial Thromboplastin Time 72.9 SECONDS (23.9-36.7)
[2024-02-14 08:10] LABS: INR 1.68 (0.8-1.2)
[2024-02-14] MEDS: midazolam 1 mg/mL INJ 2 mL 2 MG IVP (08:23)
--- NOTE | 2024-02-14 09:38 | PC.NURSE ---
Patient's and daughter expressed wish to pursue comfort care. Dr. Israel made aware.
[2024-02-14] MEDS: morphine 4 mg/mL SDV 1 mL 2 MG IVP (10:16)
--- NOTE | 2024-02-14 10:25 | PC.NURSE ---
Patient terminally extubated at 1010 by RT. Family at bedside.
--- NOTE | 2024-02-14 10:25 | PC.NURSE ---
Harjeet QUEZADA, called and updated on and daughter's decision to pursue comfort measures only and to terminally extubate. Elizabeth from [facility] releasing patient due to having gag and motor function. Call with LUIS CARLOS.
--- NOTE | 2024-02-14 12:05 | P.PN_ITS ---
Subjective 2 Subjective: Patient seen and examined. Family decided to terminally extubate Vitals/I&O/Wt Last Vital Signs Temp 98.5 F 02/14/24 04:36 Pulse 81 02/14/24 08:00 Resp 14 02/14/24 10:16 BP 113/45 02/14/24 08:00 Pulse Ox 97 02/14/24 09:30 O2 Del Method Mechanical Ventilation 02/14/24 07:40 O2 Flow Rate 2 02/12/24 07:59 FiO2 60 02/14/24 09:30 02/13/24 02/14/24 02/14/24 22:59 06:59 14:59 Intake Total 1257.373 / 2303.920 1128.403 / 3432.323 679.291 / 679.291 Output Total 50 / 100 Balance 1257.373 / 2253.920 1078.403 / 3332.323 679.291 / 679.291 Weight last 48 hrs Weight 250 lb 12.8 oz Weight 234 lb 14.684 oz Physical Exam 2 Narrative: General: intubated/sedated Skin: R femoral vein catheter insertion site clean dry and intact Urinary Catheter Management: Roy: Cath Placed During This Visit: yes Reason for Continuing Indwelling Catheter: Accurate Measurement of Urinary Output in Critically Ill Patients Urinary Catheter Date of Insertion: 02/11/24 Urinary Catheter Time of Insertion: 10:59 Data 02/14/24 04:17 02/14/24 04:17 Micro: Microbiology 02/11/24 11:00 Blood Culture - Final Blood Group g streptococcus 02/11/24 11:02 Blood Culture - Final Blood Group g streptococcus 02/12/24 09:45 Gram Stain - Final Sputum - Endotracheal Tube Aspirate Sputum Culture - Final Serratia marcescens Klebsiella oxytoca A&P Assessment and plan (1) Acute kidney injury: Plan Temporary hemodialysis catheter inserted yesterday Remove catheter as patient is being terminally extubated Medical management per primary Attestations 2 Medical Necessity Statement*: Per primary Coding Level of Care Code 74915 Diagnoses Acute kidney injury N17.9
--- NOTE | 2024-02-14 12:13 | PC.NURSE ---
Harjeet QUEZADA, called and notified of TOD 1149. Patient is not a candidate for tissue donation. Awaiting saving sight. Family request [facility] home.
--- NOTE | 2024-02-14 12:23 | PM.PN ---
Subjective Subjective: - Patient was examined this morning -Patient's and daughter at bedside -Overnight patient had episodes of nonsustained V. tach, A-fib, cardia and amiodarone drip -Currently on 60% FiO2 -Remains in renal failure urine output lackluster at 50 cc -Remains on 2 pressors, Levophed at 20, vasopressin -Discussed lab work with family, evidence of worsening renal failure, uremia, hyponatremia, hyperkalemia, with evidence of shock liver, fluid overload -Discussed options available including continued medical interventions, trying dialysis, continuing pressors, continue intubation, continue antibiotics, and giving him time -other option I discussed was easing his pain easing his suffering and allowing him to passively comfortably on comfort care -I had a detailed discussion with patient's family members, -I gave them some time to come to a decision -Reexamined patient and family, remains on Levophed, vasopressin, 60% FiO2, amiodarone drip -After discussing with patient's family the risk and benefits of all options, they voiced understanding, all questions answered, shared decision making, they decided to pursue comfort care as they tell me Sridhar would not want to live like this he would not want to be on long-term dialysis, he did not want to be resuscitated -After discussing risk benefits of all options, they voiced understanding, all Qs answered, agreed to proceed with comfort care Patient was made comfort care, extended time of 11:49am 02/14/2024 Vitals/I&O/Wt Last Vital Signs Temp 98.5 F 02/14/24 04:36 Pulse 81 02/14/24 08:00 Resp 14 02/14/24 10:16 BP 113/45 02/14/24 08:00 Pulse Ox 97 02/14/24 09:30 O2 Del Method Mechanical Ventilation 02/14/24 07:40 O2 Flow Rate 2 02/12/24 07:59 FiO2 60 02/14/24 09:30 02/13/24 02/14/24 02/14/24 22:59 06:59 14:59 Intake Total 1257.373 / 2303.920 1128.403 / 3432.323 679.291 / 679.291 Output Total 50 / 100 Balance 1257.373 / 2253.920 1078.403 / 3332.323 679.291 / 679.291 Weight last 48 hrs Weight 113.761 kg Weight 106.557 kg Physical Exam Const: COMMON NORMALS: no acute distress OTHER: Intubated, sedated, on mechanical ventilation Eye: OTHER: Pupils pinpoint Resp: COMMON NORMALS: normal respiratory effort, No retractions and No use of accessory muscles AUSCULTATION: crackles and wheezes Cardio: COMMON NORMALS: regular rate, regular rhythm, S1 normal heart sound present and S2 normal heart sound present RATE: regular rate RHYTHM: regular rhythm HEART SOUNDS: S1 normal heart sound present and S2 normal heart sound present GI: COMMON NORMALS: Normal to inspection, nondistended, normoactive bowel sounds present and non-tender Extremity: NARRATIVE EXTREMITY EXAM: Bilateral lateral 4+ pitting edema, anasarca Urinary Catheter Management: Roy: Cath Placed During This Visit: yes Reason for Continuing Indwelling Catheter: Accurate Measurement of Urinary Output in Critically Ill Patients Urinary Catheter Date of Insertion: 02/11/24 Urinary Catheter Time of Insertion: 10:59 Data 02/14/24 04:17 02/14/24 04:17 Micro: Microbiology 02/11/24 11:00 Blood Culture - Final Blood Group g streptococcus 02/11/24 11:02 Blood Culture - Final Blood Group g streptococcus 02/12/24 09:45 Gram Stain - Final Sputum - Endotracheal Tube Aspirate Sputum Culture - Final Serratia marcescens Klebsiella oxytoca A&P Assessment and plan (1) Acute encephalopathy: (2) Hypertension: Qualifiers: Hypertension type: essential hypertension Qualified Code(s): I10 - Essential (primary) hypertension (3) CAD (coronary artery disease): Qualifiers: Coronary Disease-Associated Artery/Lesion type: [place] artery [place] vs. transplanted heart: [place] heart Associated angina: without angina Qualified Code(s): I25.10 - Atherosclerotic heart disease of [place] coronary artery without angina pectoris (4) Atrial fibrillation: Qualifiers: Atrial fibrillation type: persistent (not longstanding) Qualified Code(s): I48.19 - Other persistent atrial fibrillation (5) Hyperlipidemia: Qualifiers: Hyperlipidemia type: mixed hyperlipidemia Qualified Code(s): E78.2 - Mixed hyperlipidemia (6) Sepsis: (7) Cellulitis: (8) Rhabdomyolysis: (9) SOB (shortness of breath): (10) Pneumonia: (11) NSTEMI (non-ST elevated myocardial infarction): (12) Acute kidney injury: (13) CHF exacerbation: (14) Transaminitis: (15) Hyperbilirubinemia: (16) Physical deconditioning: (17) Falls: (18) UTI (urinary tract infection): (19) Acute hypoxemic respiratory failure: (20) Septic shock: (21) Shock liver: (22) Group G streptococcal infection: (23) Need for comfort care: Plan PROCEEDING WITH COMFORT CARE, TERMINAL EXTUBATE, COMFORT CARE ORDERS Acute encephalopathy Is likely multifactorial, from pneumonia, UTI, cellulitis, sepsis # Plan ? Keep n.p.o. # Neurochecks Aspiration precautions CT head no acute findings Group G strep bacteremia -On Zosyn -repeat blood culutres Acute hypoxic respiratory failure -Requiring intubation, mechanical ventilation 02/12/2024 ? Likely secondary to fluid overload, BNP over 20,000, CHF exacerbation,4+ pitting edema ? pneumonia ? Plan -Intubated -Continue Precedex, fentanyl, propofol for sedation ? Minimize FiO2, minutes tidal volume, Daily spontaneous breathing trials ? Currently on Levophed Is currently on vasopressin ? Continue vancomycin -continue Zosyn -Add azithromycin -Monitor urine output -Diminished urine output, patient might require dialysis Septic shock ? Secondary to UTI, pneumonia ? Continue pressors ? Maintain MAP in the 65 AFSHIN -Secondary to sepsis, septic shock -Currently not requiring Levophed, vasopressin Monitor urine output Monitor creatinine is agreeable for temporary dialysis Shock liver -secondary to sepsis Pneumonia Sputum cultures ? Blood cultures UTI ? Urine culture ? Zosyn Bilateral extremity cellulitis ? Antibiotics as above CHF exacerbation ? BNP over 20,000, bilateral extremity edema, acute hypoxia ? No response to Lasix, will likely not require dialysis ? Venous ultrasound negative for DVT Sepsis ? Sources of infection is UTI, pneumonia, cellulitis NSTEMI Serial EKGs consult troponins, telemetry monitoring ? Cardiac echo Hematuria ? Resolving Nonsustained V. tach/atrial fibrillation DEXA?on amiodarone Transaminitis with hyperbilirubinemia ? CT scan patient status post cholecystectomy ? No intra extrahepatic biliary dilatation ? Monitor closely ? Acute hep panel, HIV, iron studies CODE STATUS spoke to at bedside, patient is a DNR, agreeable for intubation, agreeable for dialysis ? SCDs for DVT prophylaxis, heparin drip spoke to patient , spoke to general surgery about temporary dialysis catheter placement, spoke to nephrology about dialysis Attestations Medical Necessity Statement*: Patient requires hospitalization, for acute hypoxic respiratory failure, group G strep bacteremia, pneumonia, septic shock, multiorgan failure, shock liver, acute renal failure, NSTEMI, A-fib/nonsustained V. tach Coding Level of Care Code Critical Care >/= 30 minutes Critical care time (in minutes): 45 The high probability of a clinically significant, sudden or life threatening deterioration, as referenced in this documentation, required my full and direct attention, intervention and personal management. The critical care time shown is in addition to time spent performing any reported separately billable procedures and includes the following: [x] Data and vital sign review and interpretation [x] Patient assessment, examination and intervention [x] Medication orders and management [x] Patient/Family updates as able [x] Care Coordination and Documentation. Diagnoses Acute encephalopathy G93.40 Essential hypertension I10 Hypertension type: essential hypertension Coronary artery disease involving [place] coronary artery of [place] heart without angina pectoris I25.10 Coronary Disease-Associated Artery/Lesion type: [place] artery [place] vs. transplanted heart: [place] heart Associated angina: without angina Persistent atrial fibrillation I48.19 Atrial fibrillation type: persistent (not longstanding) Mixed hyperlipidemia E78.2 Hyperlipidemia type: mixed hyperlipidemia Sepsis A41.9 Cellulitis L03.90 Rhabdomyolysis M62.82 SOB (shortness of breath) R06.02 Pneumonia J18.9 NSTEMI (non-ST elevated myocardial infarction) I21.4 Acute kidney injury N17.9 CHF exacerbation I50.9 Transaminitis R74.01 Hyperbilirubinemia E80.6 Physical deconditioning R53.81 Falls R29.6 UTI (urinary tract infection) N39.0 Acute hypoxemic respiratory failure J96.01 Septic shock A41.9; R65.21 Shock liver K72.00 Group G streptococcal infection B95.4 Need for comfort care
--- NOTE | 2024-02-14 12:28 | PM.DDS ---
Discharge Providers DDS Date of Admission: 02/11/24 13:30 Date Summary Completed: 02/14/24 Attending Provider at Admission: Brian Israel MD Time of : 11:49 Attending Provider at Discharge: Brian Israel MD DS Diagnoses Hospital Diagnoses (1) Acute encephalopathy: (2) Hypertension: Qualifiers: Hypertension type: essential hypertension Qualified Code(s): I10 - Essential (primary) hypertension (3) CAD (coronary artery disease): Qualifiers: Coronary Disease-Associated Artery/Lesion type: [place] artery [place] vs. transplanted heart: [place] heart Associated angina: without angina Qualified Code(s): I25.10 - Atherosclerotic heart disease of [place] coronary artery without angina pectoris Permanent Problem Comments: Pt had PCI in December of 2010 three stents (4) Atrial fibrillation: Qualifiers: Atrial fibrillation type: persistent (not longstanding) Qualified Code(s): I48.19 - Other persistent atrial fibrillation (5) Hyperlipidemia: Qualifiers: Hyperlipidemia type: mixed hyperlipidemia Qualified Code(s): E78.2 - Mixed hyperlipidemia (6) Sepsis: (7) Cellulitis: (8) Rhabdomyolysis: (9) SOB (shortness of breath): (10) Pneumonia: (11) NSTEMI (non-ST elevated myocardial infarction): (12) Acute kidney injury: (13) CHF exacerbation: (14) Transaminitis: (15) Hyperbilirubinemia: (16) Physical deconditioning: (17) Falls: (18) UTI (urinary tract infection): (19) Acute hypoxemic respiratory failure: (20) Septic shock: (21) Shock liver: (22) Group G streptococcal infection: (23) Need for comfort care: Reason for Visit Reason for Visit WEAKNESS; FALL Brief History: Sridhar Mercado is a 78 year old male with a past medical history of atrial fibrillation, on Eliquis, history of CAD, who presents to [facility] due to weakness, fatigue, malaise, altered mental status, diffuse muscle skeletal aches and pains, 2 falls in the last week. Currently patient is alert to person, to place, not to time, he can follow commands can answer questions, but is quite encephalopathic. Patient's is at bedside, she does not for the last week, patient has slowly declined, he had 2 falls over the last week, no significant head trauma, no loss of consciousness, he has been complaining of weakness, fatigue, malaise, diarrhea, diffuse musculoskeletal aches and pains, abdominal pain complaints, shortness of breath. For the last 48 hours, family was not able to get him out of bed, due to generalized weakness, he does report fatigue, malaise, fevers, chills, shortness of breath, diffuse musculoskeletal aches and pain he denies any chest pain, he does have bilateral extremity edema, 2+, which is new, does report feeling lightheaded [facility] secondary to pneumonia, CHF, fluid overload, acute encephalopathy, UTI, bilateral extremity cellulitis, AFSHIN, sepsis, NSTEMI, transaminitis with hyperbilirubinemia. Patient was monitored in the intensive care unit, patient's condition worsened, worsening respiratory failure and encephalopathy, requiring intubation, mechanical ventilation, sedated, requiring 2 pressors. Patient was managed for acute hypoxic respiratory failure secondary to pneumonia, group G strep bacteremia, septic shock, requiring 2 pressors, acute renal failure, shock, shock liver, NSTEMI. Patient during his hospitalization developed nonsustained V. tach, requiring amiodarone. After discussing with family the risk and benefits of all options, patient's voiced understanding, all questions answered, proceeded with comfort care. Patient was terminally extubated, comfort care initiated, time of 1149 02/14/2024 Summary Date and Time of Date of : 02/14/24 Time of : 11:49 Additional Data Confirmation of as documented by pronouncing clinician: no pulse, no respirations and no heart sounds Family: at bedside Additional persons at bedside: nursing staff Attending/PCP notified?: I am attending Was code activated?: No Autopsy requested?: No Advance directives?: No Hospice patient?: No Discharge Plan Discharge Patient Disposition: Condition: Stable Prescriptions: No Action clopidogrel 75 mg tablet 75 mg PO QDAY allopurinol 300 mg tablet 300 mg PO QDAY multivitamin Tablet 1 tab PO QAM atenolol 50 mg tablet 25 mg PO QDAY lisinopril 40 mg tablet 40 mg PO QDAY isosorbide mononitrate 30 mg tablet extended release 24 hr See Rx Instructions .ROUTE .COMPLEX Qty: 90 3RF Dose Instruction: TAKE 1 TABLET BY MOUTH EVERY MORNING Rx Instructions: TAKE 1 TABLET BY MOUTH EVERY MORNING amlodipine 5 mg tablet 10 mg PO DAILY furosemide [Lasix] 20 mg tablet 20 mg PO DAILY Qty: 30 2RF fluorouracil 5 % cream 1 applic TOPICAL BID Aspir-81 81 mg Tablet,Delayed Release (Dr/Ec) 81 mg PO DAILY vitamin B complex Tablet 1 tab PO DAILY triamterene-hydrochlorothiazid 75-50 mg tablet 0.5 tab PO QAM rosuvastatin 20 mg tablet 10 mg PO QPM Eliquis 5 mg tablet 2.5 mg PO BID Reguloid (aspartame) 3 gram/5.8 gram powder See Rx Instructions .ROUTE .COMPLEX Rx Instructions: MIX AND DRINK 1 ROUNDED TEASPOONFUL IN WATER OR JUICE ONCE DAILY NEEDED FOR FIBER SUPPLEMENT. Patient Instructions: Opioid Safety DS Attestations Time Spent in /Discharge Care*: greater than 30 min Quality - AMI: AMI present?: No Quality - Stroke: CVA present?: No Quality - VTE: VTE present?: No Deep Vein Thrombosis/Pulmonary Embolism Present on Admission: No Coding Level of Care Code Critical Care >/= 30 minutes Critical care time (in minutes): 35 The high probability of a clinically significant, sudden or life threatening deterioration, as referenced in this documentation, required my full and direct attention, intervention and personal management. The critical care time shown is in addition to time spent performing any reported separately billable procedures and includes the following: [x] Data and vital sign review and interpretation [x] Patient assessment, examination and intervention [x] Medication orders and management [x] Patient/Family updates as able [x] Care Coordination and Documentation. Diagnoses Acute encephalopathy G93.40 Essential hypertension I10 Hypertension type: essential hypertension Coronary artery disease involving [place] coronary artery of [place] heart without angina pectoris I25.10 Coronary Disease-Associated Artery/Lesion type: [place] artery [place] vs. transplanted heart: [place] heart Associated angina: without angina Persistent atrial fibrillation I48.19 Atrial fibrillation type: persistent (not longstanding) Mixed hyperlipidemia E78.2 Hyperlipidemia type: mixed hyperlipidemia Sepsis A41.9 Cellulitis L03.90 Rhabdomyolysis M62.82 SOB (shortness of breath) R06.02 Pneumonia J18.9 NSTEMI (non-ST elevated myocardial infarction) I21.4 Acute kidney injury N17.9 CHF exacerbation I50.9 Transaminitis R74.01 Hyperbilirubinemia E80.6 Physical deconditioning R53.81 Falls R29.6 UTI (urinary tract infection) N39.0 Acute hypoxemic respiratory failure J96.01 Septic shock A41.9; R65.21 Shock liver K72.00 Group G streptococcal infection B95.4 Need for comfort care
--- NOTE | 2024-02-14 12:42 | PC.NURSE ---
Post mortem care provided.
--- NOTE | 2024-02-14 13:02 | PC.NURSE ---
Released by [employer].
--- NOTE | 2024-02-14 13:22 | P.PN_ITS ---
Subjective 2 Subjective: remains on vent Medications: Reviewed: Yes Vitals/I&O/Wt Last Vital Signs Temp 98.5 F 02/14/24 04:36 Pulse 81 02/14/24 08:00 Resp 14 02/14/24 10:16 BP 113/45 02/14/24 08:00 Pulse Ox 97 02/14/24 09:30 O2 Del Method Mechanical Ventilation 02/14/24 07:40 O2 Flow Rate 2 02/12/24 07:59 FiO2 60 02/14/24 09:30 02/13/24 02/14/24 02/14/24 22:59 06:59 14:59 Intake Total 1257.373 / 2303.920 1128.403 / 3432.323 679.291 / 679.291 Output Total 50 / 100 Balance 1257.373 / 2253.920 1078.403 / 3332.323 679.291 / 679.291 Weight last 48 hrs Weight 113.761 kg Weight 106.557 kg Physical Exam 2 Narrative: INTUBATED , SEDATED ON PRESSORS Urinary Catheter Management: Roy: Cath Placed During This Visit: yes Reason for Continuing Indwelling Catheter: Accurate Measurement of Urinary Output in Critically Ill Patients Urinary Catheter Date of Insertion: 02/11/24 Urinary Catheter Time of Insertion: 10:59 Data 02/14/24 04:17 02/14/24 04:17 Micro: Microbiology 02/11/24 11:00 Blood Culture - Final Blood Group g streptococcus 02/11/24 11:02 Blood Culture - Final Blood Group g streptococcus 02/12/24 09:45 Gram Stain - Final Sputum - Endotracheal Tube Aspirate Sputum Culture - Final Serratia marcescens Klebsiella oxytoca A&P Assessment and plan (1) Acute kidney injury: Plan 1. Acute kidney injury: Baseline creatinine was normal in December 2023. Now has an AFSHIN with a creatinine of 1.7-likely ATN in the setting of acute infection, patient also received IV contrast with CT-renal function may get further worse. -Currently on 2 pressors, anuric , family wishes to proceed with comfort care -Avoid further IV contrast exposure and nephrotoxic drugs. 2. Septic shock in the setting of pneumonia and possible UTI, on pressors 3. Acute on chronic respiratory failure: Multifactorial -due to pneumonia and possible CHF 4. Metabolic acidosis: Mild, likely from lactic acidosis, monitor 5. Hyponatremia, mild monitor Patient evaluated using audiovisual cart. Time spent 40 min Attestations 2 Medical Necessity Statement*: per medicine Coding Level of Care Code Acute Code for [facility] Fwd Diagnoses Acute kidney injury N17.9
--- NOTE | 2024-02-14 14:37 | PC.NURSE ---
Fentanyl drip wasted in SEP with Halle Mo RN.
== END 2024-02-14 13:30 | disposition expired | DRG 871 ==
LOC: ER 10:48 → ICU 13:40
PROVIDERS: Internal Medicine; Admitting Provider Family Medicine; Emergency Provider Family Medicine; Visit Provider Family Medicine
DX: A40.8 Other streptococcal sepsis (principal); G93.41 Metabolic encephalopathy; R65.21 Severe sepsis with septic shock; N17.0 Acute kidney failure with tubular necrosis; J96.21 Acute and chronic respiratory failure with hypoxia; K72.00 Acute and subacute hepatic failure without coma; I21.4 Non-ST elevation (NSTEMI) myocardial infarction; J18.9 Pneumonia, unspecified organism; I48.19 Other persistent atrial fibrillation; N39.0 Urinary tract infection, site not specified; E87.20 Acidosis, unspecified; E87.1 Hypo-osmolality and hyponatremia; L03.116 Cellulitis of left lower limb; L03.115 Cellulitis of right lower limb; M62.82 Rhabdomyolysis; I47.20 Ventricular tachycardia, unspecified; Z79.01 Long term (current) use of anticoagulants; I25.10 Atherosclerotic heart disease of native coronary artery without angina pectoris; Z95.5 Presence of coronary angioplasty implant and graft; I11.0 Hypertensive heart disease with heart failure; I50.9 Heart failure, unspecified; M10.9 Gout, unspecified; E78.2 Mixed hyperlipidemia; Z87.891 Personal history of nicotine dependence; Z91.81 History of falling; R31.9 Hematuria, unspecified; E87.5 Hyperkalemia; Z51.5 Encounter for palliative care
CPT/HCPCS: 36415; 36573; 36592; 36600; 51702; 70450; 71045; 74177; 76705; 80048; 80051; 80053; 80061; 80074; 80307; 81001; 82140; 82330; 82550; 82728; 82803; 82805; 83036; 83540; 83550; 83605; 83690; 83735; 83880; 84100; 84145; 84443; 84484; 85007; 85025; 85610; 85730; 86140; 87040; 87070; 87077; 87150; 87186; 87205; 87486; 87581; 87633; 87806; 93005; 93306; 93970; 94002; 94003; 94640; 94660; 94799; 96365; 96367; 96374; 96376; 99291; A4222; A4570; C1751; C9113; J0282; J0283; J0330; J0456; J1644; J1940; J2060; J2250; J2270; J2543; J2598; J2704; J3010; J3370; J3490; J7030; J7050; Q3014; Q9967